=== PATIENT | male | born 1960 | race Caucasian/White ===

== ENCOUNTER 2020-07-18 14:20 | Inpatient (IN) | payer OTHER ==
[~2020-07-18] VITALS: Ht 167.6 cm; Wt 79.8 kg
[2020-07-18] VITALS (7 sets, daily range): BP systolic 95–116; BP diastolic 45–71
[2020-07-18] MEDS ORDERED: IV NS 0.9% 1,000 ML BAG IV ONE (15:00)
[2020-07-18 15:19] LABS: BASOPHILS # (AUTO) 0.1 /CMM (0.0-0.2); BASOPHILS % (AUTO) 0.7 % (0.0-2.0); EOSINOPHILS % (AUTO) 1.7 % (0.0-6.0); LYMPHOCYTES # (AUTO) 1.3 /CMM (0.8-4.8); MEAN CORPUSCULAR HGB CONC 29 g/dl (31.0-36.0); MEAN CORPUSCULAR VOLUME 93 fL (80-96); MONOCYTES # (AUTO) 1.6 /CMM (0.1-1.30); MONOCYTES % (AUTO) 11.4 % (2.0-12.0); NEUTROPHILS # (AUTO) 10.7 /CMM (1.8-8.9); NEUTROPHILS % (AUTO) 77.2 % (43.0-81.0); PLATELET COUNT (AUTO) 318 /CMM (150-450); RED BLOOD CELL COUNT(AUTO) 2.16 MIL/uL (4.5-6.0); WHITE BLOOD COUNT (AUTO) 13.9 K/uL (4.3-11.0)
--- NOTE | 2020-07-18 15:22 | NUR ---
BIBA [facility] From [facility] "was going to [facility] dialysis his BP was low". PT EYES CLOSED, NON VERBAL. RR EVEN & UNLABORED. PLACED ON VENT 02 SAT 100%. PLACED ON SURVEYOR INSTRUMENT ASSISTANT, SR. PT SEEN & EVAL'D BY DR. HURST. WILL CONT TO MONITOR.
[2020-07-18 15:23] LABS: HEMATOCRIT 20 % (39-51); HEMOGLOBIN 5.8 g/dL (13.5-17.5)
[2020-07-18] MEDS ORDERED: IV NS 0.9% 500 ML BAG IV ONE (15:30)
[2020-07-18] MEDS ORDERED: AMLO5TAB4 GT (15:40)
[2020-07-18] MEDS ORDERED: SEVE0.8P3 GT (15:40)
[2020-07-18] MEDS ORDERED: TRAM50TA2 GT (15:40)
[2020-07-18] MEDS ORDERED: HEPA100D33 SUBCUT (15:40)
[2020-07-18] MEDS ORDERED: CHOL4PAC GT (15:40)
[2020-07-18] MEDS ORDERED: BISA10SU11 RC (15:40)
[2020-07-18] MEDS ORDERED: GLYC2TAB21 GT (15:40)
[2020-07-18] MEDS ORDERED: LINA5TAB GT (15:40)
[2020-07-18] MEDS ORDERED: MULT-439 GT (15:40)
[2020-07-18] MEDS ORDERED: FAMO20TA8 GT (15:40)
[2020-07-18] MEDS ORDERED: NA P133E RC (15:40)
[2020-07-18] MEDS ORDERED: ATOR80TA GT (15:40)
[2020-07-18] MEDS ORDERED: HYDR-3972 GT (15:40)
[2020-07-18] MEDS ORDERED: ASPI-1169 GT (15:40)
[2020-07-18] MEDS ORDERED: ACET325T53 GT (15:40)
[2020-07-18] MEDS ORDERED: ESCI10TA GT (15:40)
[2020-07-18] MEDS ORDERED: VIT1TABL46 GT (15:40)
[2020-07-18] MEDS ORDERED: METO-295 GT (15:40)
[2020-07-18] MEDS ORDERED: LATA2.5D15 OP (15:40)
[2020-07-18] MEDS ORDERED: METO25TA6 GT (15:40)
[2020-07-18] MEDS ORDERED: INSU100I45 SUBCUT (15:40)
[2020-07-18] MEDS ORDERED: ALBU6.7H9 IH (15:40)
[2020-07-18] MEDS ORDERED: FERR325T23 GT (15:40)
[2020-07-18] MEDS ORDERED: NUT.237L67 GT (15:40)
[2020-07-18] MEDS ORDERED: DEXT1DRO3 OP (15:40)
[2020-07-18] MEDS ORDERED: AMIN887L GT (15:40)
[2020-07-18] MEDS ORDERED: DOCU-141 GT (15:40)
[2020-07-18] MEDS ORDERED: ASCO500C17 GT (15:40)
[2020-07-18 15:45] LABS: BILIRUBIN,DIRECT 0.1 mg/dL (0.0-0.2); BILIRUBIN,TOTAL 0.3 mg/dL (0.2-1.0); CALCIUM, SERUM 8.3 mg/dL (8.5-10.1); CREATININE 3.3 mg/dL (0.6-1.3); POTASSIUM 4.6 mmol/L (3.5-5.1); TOTAL PROTEIN, SERUM 6.4 g/dL (6.4-8.2)
[2020-07-18 15:47] LABS: ALBUMIN 1.3 g/dL (3.4-5.0)
--- NOTE | 2020-07-18 15:56 | NUR ---
PAGED [facility].
[2020-07-18 16:00] LABS: BAND % (MANUAL) 1 % (0.0-5.0); EOSINOPHILS % (MANUAL) 1 % (0-4); LYMPHOCYTES % (MANUAL) 13 % (16-48); MONOCYTES % (MANUAL) 8 % (0-11.0); NEUTROPHILS % (MANUAL) 77 (42-76)
[2020-07-18] MEDS ORDERED: PIPERACILLIN /TAZOBACTAM 3.375 G in IV D5W 50 ML IV ONE (16:00)
[2020-07-18] MEDS ORDERED: VANCOMYCIN 1 GM in IV D5W 250 ML IV ONE (16:30)
--- NOTE | 2020-07-18 17:07 | NUR ---
REPORT GIVEN TO GAYATHRI FLOWERS FOR NIKA.
--- NOTE | 2020-07-18 17:30 | NUR ---
ADMITTING NOTE Received patient from ER via bed, A/OX0. on vent, tolerating setting well, SPO2 100%, VS WNL, IV line dislodged during transportation to hospital bed, made attempt x3 to start a new line, unsuccessful, net making supervisor notifyed, made call to notify , blood is ready for fruit picker, unable transfuse at this moment, G-tube in place, clamped, Safety measures in place, bed locked, in lowest position, bed alarm is on, call light in reach, will con to monitor
[2020-07-18] MEDS ORDERED: HYDROCODONE/APAP 5/325MG TABLET PO PRN (18:30)
[2020-07-18] MEDS ORDERED: MAG HYDROX/AL HYDROX/SIMETH 30 ML UDC PO PRN (18:30)
[2020-07-18] MEDS ORDERED: ZOLPIDEM TARTRATE 5 MG TABLET PO PRN (18:30)
[2020-07-18] MEDS ORDERED: NEPRO VAN 237 ML CAN GT SCH (18:30)
[2020-07-18] MEDS ORDERED: MAGNESIUM HYDROXIDE 30 ML UDC PO PRN (18:30)
[2020-07-18] MEDS ORDERED: ONDANSETRON HCL/PF 4 MG/2 ML VIAL IVP PRN (18:30)
[2020-07-18] MEDS ORDERED: TRAMADOL HCL 50 MG TABLET GT PRN (18:30)
[2020-07-18] MEDS ORDERED: BISACODYL SUPP (10 MG) 10 MG/SUPP.RECT SUPP.RECT RC PRN (18:30)
[2020-07-18] MEDS ORDERED: NA PHOS,M-B/NA PHOS,DI-BA 1 EA ENEMA RC PRN (18:30)
[2020-07-18] MEDS ORDERED: ACETAMINOPHEN 325 MG TABLET PO PRN ×2 (18:30)
[2020-07-18] MEDS ORDERED: Z GUARD REMEDY 2 OZ OINT TP PRN (18:30)
--- NOTE | 2020-07-18 18:36 | NUR ---
IV LINES STARTED R HANG G22, AND L HAND G 20, BOTH INTACT AND PATENT
--- NOTE | 2020-07-18 18:50 | NUR ---
FEVER 101.8 NOTED, TYLENOL GIVEN
[2020-07-18] MEDS ORDERED: POLYVINYL ALCOHOL 15 ML BOTTLE OP PRN (19:00)
[2020-07-18] MEDS: METOPROLOL TARTRATE 25 MG TABLET GT SCH (21:00)
[2020-07-18] MEDS ORDERED: ALBUTEROL SULFATE INH 18 GM HFA.AER.AD IH SCH (21:00)
[2020-07-18] MEDS ORDERED: Medication Not On Formulary EA (Atorvastatin Calcium (Lipitor) 80 MG) GT SCH (22:00)
[2020-07-18] MEDS: CHOLESTYRAMINE/ASPARTAME 4 G/PKT PACKET GT SCH (22:16)
[2020-07-18] MEDS: CEFEPIME 1 GM in IV D5W 100 ML IV SCH (22:20)
[2020-07-18] MEDS: LATANOPROST EYE DROP 0.005% 2.5 ML BOTTLE OP SCH (22:23)
[2020-07-18] MEDS: METOCLOPRAMIDE HCL 10 MG TABLET GT SCH (23:38)
[2020-07-19] VITALS (11 sets, daily range): BP systolic 97–128; BP diastolic 47–68
--- NOTE | 2020-07-19 05:32 | NUR ---
RN notes In bed resting comfortably with no respiratory distress. Breathing even and unlabored. Vent setting well tolerated. No Physical manifestation of pain or discomfort. Alert and able to answer a yes or no question by nodding or shaking head. Started feeding Nepro at 40mls/hr x 18 hours. On at 21:00 and off at 15:00, tolerating well with no residual. Infused two PRBC, no adverse effect noted. Patient had an elevated temperature 100.5. Called Dr. Ramirez and gave a signal to infuse the blood. Temperature eventually went down to 98.5 to 99. Skin assessment done. Multiple pressure sore noted. Kept clean and dry. Will endorse to next shift for continuity of care.
[2020-07-19] MEDS: METOCLOPRAMIDE HCL 10 MG TABLET GT SCH ×4 (06:20→23:34)
[2020-07-19 06:44] LABS: BASOPHILS # (AUTO) 0.1 /CMM (0.0-0.2); BASOPHILS % (AUTO) 0.6 % (0.0-2.0); EOSINOPHILS % (AUTO) 2.1 % (0.0-6.0); HEMATOCRIT 30 % (39-51); HEMOGLOBIN 8.9 g/dL (13.5-17.5); LYMPHOCYTES # (AUTO) 1.6 /CMM (0.8-4.8); LYMPHOCYTES % (AUTO) 10.7 % (20.0-44.0); MEAN CORPUSCULAR HGB CONC 30 g/dl (31.0-36.0); MEAN CORPUSCULAR VOLUME 93 fL (80-96); MONOCYTES # (AUTO) 1.4 /CMM (0.1-1.30); MONOCYTES % (AUTO) 9.3 % (2.0-12.0); NEUTROPHILS # (AUTO) 11.3 /CMM (1.8-8.9); NEUTROPHILS % (AUTO) 77.3 % (43.0-81.0); PLATELET COUNT (AUTO) 270 /CMM (150-450); WHITE BLOOD COUNT (AUTO) 14.6 K/uL (4.3-11.0)
[2020-07-19 07:28] LABS: CALCIUM, SERUM 8.9 mg/dL (8.5-10.1); CREATININE 3.6 mg/dL (0.6-1.3); MAGNESIUM 2.5 mg/dL (1.8-2.4); PHOSPHORUS 2.5 mg/dL (2.5-4.9); POTASSIUM 4.2 mmol/L (3.5-5.1)
--- NOTE | 2020-07-19 07:30 | NUR ---
JAILENE RN OPENING NOTE RECEIVED REPORT FROM PM NURSE.PATIENT IN BED.AWAKE.NO SOB NO DISTRESS NOTED.ON VENTILATOR WITH TRACH.NO SOB NO DISTRESS NOTED.GTF IS ONGOING WITHOUT ANY RESIDUAL.IV LINES ARE INTACT AND PATENT.ON TELE MONITOR SR WITH HR 83.ALL SFETY AND ASPIRATION MEASURES IN PLACE.BED IS LOW AND IN LOCKED POSITION.CALL LIGHT IN REACH.SRX3.BED ALARM IS ON.WILL CONTINUE TO MONITORS.
--- NOTE | 2020-07-19 08:30 | NUR ---
JAILENE RN NOTE SEEN BY ,UPDATED ABOUT PATIENT CONDITION WITH LB RESULT OF HIGH BUN AND CREATININE AND HIGH BLOOD GLUCOSE LEVEL.CONTINUE HOME MEDICATION ORDERED AND ACCU CHECK .WHILE LOOKING E MAR MED IS NOT INCLUDED.PHARMACY MADE AWARE.RECOMMENDED TO CONTINUE WITH SLIDING SCALE AND DO COVERAGE. MADE AWARE.OK TO CONTINUE WITH MODERATE SLIDING SCALE.WILL CONTINUE TO MONITOR.
[2020-07-19] MEDS ORDERED: GLYCOPYRROLATE 2 MG GT SCH (09:00)
[2020-07-19] MEDS ORDERED: AMINO ACIDS GT SCH (09:00)
[2020-07-19] MEDS ORDERED: [UNRECOGNIZED DRUG - OTHER] GT SCH (09:00)
[2020-07-19] MEDS: METOPROLOL TARTRATE 25 MG TABLET GT SCH (09:00)
[2020-07-19] MEDS ORDERED: INSULIN ASPART/LISPRO 100 UNIT/ML CARTRIDGE SQ PRN (09:00)
[2020-07-19] MEDS ORDERED: ASPIRIN 81 MG TAB.CHEW GT SCH (09:00)
[2020-07-19] MEDS ORDERED: ESCITALOPRAM OXALATE (10 MG) 10 MG TABLET GT SCH (09:00)
[2020-07-19] MEDS ORDERED: INSULIN REGULAR, HUMAN 100 UNIT/ML 3 ML VIAL SQ PRN (09:00)
[2020-07-19] MEDS ORDERED: PROTEIN HYDROLYS GT SCH (09:00)
[2020-07-19] MEDS ORDERED: INSULIN NPH HUMAN ISOPHANE SUBCUT SCH (09:00)
[2020-07-19] MEDS ORDERED: AMLODIPINE BESYLATE 5 MG TABLET GT SCH (09:00)
[2020-07-19] MEDS ORDERED: INSULIN NPH, HUMAN ISOPHANE 100 UNIT/ML VIAL SQ SCH (09:00)
[2020-07-19] MEDS ORDERED: FERROUS SULFATE (325 MG) 325 MG/TAB TABLET GT SCH (09:00)
[2020-07-19] MEDS ORDERED: DEXTROSE 50%-WATER 50 ML DISP.SYRIN IV PRN (09:00)
[2020-07-19] MEDS ORDERED: HYDROCODONE/APAP 5/325MG TABLET GT SCH (09:00)
[2020-07-19] MEDS: LINAGLIPTIN 5 MG TABLET GT SCH (09:03)
[2020-07-19] MEDS: VIT B CMPLX 3/FA/VIT C/BIOTIN 1 TAB TABLET GT SCH (09:03)
[2020-07-19] MEDS: DOCUSATE SODIUM 100 MG CAPSULE PO SCH (09:03)
[2020-07-19] MEDS: MULTIVIT W/MINERALS 1 TAB TABLET GT SCH (09:04)
[2020-07-19] MEDS: FAMOTIDINE (20 MG) 20 MG TABLET GT SCH (09:04)
[2020-07-19] MEDS: ASCORBIC ACID 500 MG TABLET GT SCH (09:04)
[2020-07-19] MEDS: SEVELAMER CARBONATE 800 MG POWD.PACK GT SCH ×3 (09:04→17:38)
[2020-07-19] MEDS: CHOLESTYRAMINE/ASPARTAME 4 G/PKT PACKET GT SCH (09:06)
--- NOTE | 2020-07-19 09:30 | NUR ---
RN NOTE QUESTRAN MEDICATION NOT ADMINISTERED BECAUSE MEDICATION DISCONTINUED.DISCARDED THE MEDICATION.
[2020-07-19 09:53] LABS: THYROID STIMULATING HORMONE 2.616 uIU/mL (0.358-3.74)
[2020-07-19] MEDS: INSULIN NPH, HUMAN ISOPHANE 100 UNIT/ML VIAL SQ SCH ×3 (10:24→17:39)
--- NOTE | 2020-07-19 11:35 | NUR ---
RN NOTE MADE AWARE THAT D DIMER LEVEL AND CRP IS HIGH WITH VALUES.MADE AWARE THAT PATIENT NOT ON ANY ANTICOAGULANT.LOW H/H.S/P BLOOD TRANSFUSION.GOT NEW ORDER FOR DEXAMETHASONE 6MG IV DAILY.CARRIED OUT ORDER.
[2020-07-19] MEDS: BLOOD SUGAR DIAGNOSTIC 1 EACH STRIP IN SCH ×2 (12:45→17:35)
[2020-07-19] MEDS: DEXAMETHASONE SOD PHOSPHATE 10 MG/ML VIAL IV SCH (12:45)
--- NOTE | 2020-07-19 13:01 | NUR ---
RN NOTE WILL CONTINUE WITH NPH AND ACCU CHECK.MODERATE SLIDING SCALE IF NEEDED PER .DISCONTINUED ACCU CHECK.WILL CONTINUE TO MONITOR. Addendum: 07/19/20 at 1332 by MARIANA GATICA RN DISCONTINUED REGULAR INSULIN WITH ACCU CHECK.
--- NOTE | 2020-07-19 16:19 | NUR ---
RN NOTE RECEIVED CALL FROM LAB FOR POSITIVE ,MRSA.BACTROBAN ORDERED.ON CONTACT ISOLATION.
--- NOTE | 2020-07-19 18:14 | NUR ---
RN NOTE FAMILY AT BEDSIDE .UPDATED ABOUT PATIENT CONDITION.ABLE TO ANSWER QUESTIONS.FAMILY APPRECIATED CARE GIVEN.WILL CONTINUE TO MONITOR.
--- NOTE | 2020-07-19 19:25 | NUR ---
RN CLOSING NOTE ENDORSED TO PM NURSE FOR NIKA.FAMILY AT BEDSIDE.PATIENT IN STABLE CONDITION.ADDRESSED ALL NEEDS,.
--- NOTE | 2020-07-19 19:30 | NUR ---
RN OPENING NOTES: RECEIVED [facility] VENT PT(NON VERBAL); IN BED SLEEPING COMFORTABLY. PATIENT IN NO S/SX OF ACUTE DISTRESS AT THIS TIME. NO SOB NOTED. PATIENT'S BREATHING IS EVEN AND UNLABORED. PATIENT ON MECHANICAL VENT; SETTINGS PRESCRIBED; PT TOLERATED WELL. AMBU BAG AT BED SIDE ALARMS SET PER PROTOCOL AND AUDIBLE. VENT PLUGGED IN TO RED OUTLET. NO DISTRESS NOTED. PATIENT ON TELE MONITORING READING SINUS RHYTHM HR IS @80S AT THE TIME OF RECEIVED. G TUBE FLUSHING AND PATENT; SITE CLEAN DRY AND INTACT; NO RESIDUAL NOTED; CONNECTED TO TUBE FEEDING OF NEPRO @40ML/HR; TOLERATES WELL. NOTED IV SITE ON L HAND #20; PATENT, INTACT AND FLUSHING WELL;NO S/S OF INFECTION OR INFILTRATION. PT ALSO HAS L CHES PERMA CATH; SECURE AND INTACT. SAFETY MEASURES HAVE BEEN PROVIDED AND IMPLEMENTED. PATIENT BED ALARM IS ON. HEAD OF BED ELEVATED. BED IS LOCKED, IN LOWEST POSITION AND SIDE RAILS UP. CALL LIGHT WITHIN REACH OF THE PATIENT. APPLICABLE ISOLATION PRECAUTIONS IN PLACE. WILL CONTINUE TO MONITOR AND REASSESS FOR ANY CHANGES AND WILL CARRY OUT ANY ONGOING AND ACTIVE MD ORDER.
[2020-07-19] MEDS: MUPIROCIN OINT 2% 22 GM TUBE NS SCH (21:21)
[2020-07-19] MEDS: CEFEPIME 1 GM in IV D5W 100 ML IV SCH (21:21)
[2020-07-19] MEDS: LATANOPROST EYE DROP 0.005% 2.5 ML BOTTLE OP SCH (21:51)
--- NOTE | 2020-07-19 23:00 | NUR ---
RN NOTES NO CHANGE IN PATIENT CONDITION AT THIS TIME PATIENT VITALS STABLE, NO SIGNS OF ACUTE RESPIRATORY DISTRESS. DIE INSPECTOR MADE AWARE. WILL CONTINUE TO MONITOR AND REASSESS FOR ANY CHANGES THROUGHOUT THE SHIFT.
[2020-07-20] VITALS: BP 130/61
--- NOTE | 2020-07-20 00:05 | NUR ---
RN NOTES ACCU CHECK DONE; 370MG/DL. LOGISTICS VICE PRESIDENT MADE AWARE. WILL INFORM HAYES ALVAREZ TO VERIFY FOR ANY ORDER. REGULAR INSULIN C SLIDING SCALE HAS BEEN DC'd. COMMUNICATED WITH HAYES ALVAREZ AND ADVISED THAT DR ADEEL ROSALES REGULAR INSULIN C SLIDING SCALE AND ONLY EXISTING ORDER IS FOR NPH TID. ADVISED THATPT'S BLOOD SUGAR @0000 IS 370MG/DL. AWAITING RESPONSE. Addendum: 07/20/20 at 0017 by RAJWINDER QUINN RN HAYES ALVAREZ ORDERED TO PATTY INTAKE WORKER AND ORDERED REGULAR INSULIN ON MODERATE SSL.LOGISTICS VICE PRESIDENT MADE AWARE.
[2020-07-20] MEDS: BLOOD SUGAR DIAGNOSTIC 1 EACH STRIP IN SCH ×5 (00:15→23:13)
[2020-07-20] MEDS: INSULIN REGULAR, HUMAN 100 UNIT/ML 3 ML VIAL SQ PRN ×6 (00:28→23:16)
[2020-07-20] MEDS ORDERED: DEXTROSE 50%-WATER 50 ML DISP.SYRIN IV PRN (00:30)
[2020-07-20 04:00] VITALS: BP 139/69
--- NOTE | 2020-07-20 04:24 | NUR ---
RN NOTES PATIENT REMAINS IN NO ACUTE RESPIRATORY DISTRESS AT THIS TIME, NO CHANGES TO CONDITION/STATUS. AM PATIENT CARE DONE. CLINIC MD ASSOCIATE WELL AWARE. WILL CONTINUE TO MONITOR AND REASSESS FOR ANY CHANGES THROUGHOUT THE SHIFT
[2020-07-20] MEDS: METOCLOPRAMIDE HCL 10 MG TABLET GT SCH ×4 (05:11→23:05)
--- NOTE | 2020-07-20 05:45 | NUR ---
RN NOTES ACCU CHECK DONE 407MG/DL;WATER TREATMENT PLANT REPAIRER MADE AWARE. PER SLIDING SCALE 15U AND CALL MD. COMMUNICATED WITH HAYES ALVAREZ AND ADVISE ABOUT RESULT. HAYES ALVAREZ ADVISED TO RECHECK AFTER 30MINS AND DO SLIDING SCAL TO DETERMINE A SECOND DOSE; THEN RESUME ACCU CHECK SCHEDULE. WATER TREATMENT PLANT REPAIRER MADE AWARE. WILL CARRY OUT REQUESTED
[2020-07-20] MEDS: NEPRO 1,000 ML BOTTLE GT PRN (05:52)
[2020-07-20 06:38] LABS: BASOPHILS % (AUTO) 0.2 % (0.0-2.0); HEMATOCRIT 30 % (39-51); HEMOGLOBIN 9.1 g/dL (13.5-17.5); LYMPHOCYTES # (AUTO) 0.8 /CMM (0.8-4.8); LYMPHOCYTES % (AUTO) 6.6 % (20.0-44.0); MEAN CORPUSCULAR HGB CONC 30 g/dl (31.0-36.0); MEAN CORPUSCULAR VOLUME 90 fL (80-96); MONOCYTES # (AUTO) 0.3 /CMM (0.1-1.30); NEUTROPHILS # (AUTO) 11.5 /CMM (1.8-8.9); NEUTROPHILS % (AUTO) 91.2 % (43.0-81.0); PLATELET COUNT (AUTO) 310 /CMM (150-450); RED BLOOD CELL COUNT(AUTO) 3.33 MIL/uL (4.5-6.0); WHITE BLOOD COUNT (AUTO) 12.6 K/uL (4.3-11.0)
--- NOTE | 2020-07-20 06:48 | NUR ---
RN NOTES ACCU CHECK DONE 376MG/DL;CAKE WASHER MADE AWARE. WILL ADMINISTER INSULIN PER SLIDING SCALE; 15UNITS. CAKE WASHER MADE AWARE/.
--- NOTE | 2020-07-20 06:57 | NUR ---
RN CLOSING NOTE: PATIENT REMAINS IN ROOM IN NO SIGNS OF RESPIRATORY DISTRESS; STILL ON VENT SETTING PER ORDERED. SAFETY MEASURES IMPLEMENTED, BED IN LOWEST POSITION, LOCKED, SIDE RAILS UP, CALL LIGHT WITHIN REACH. ALL NEEDS AND ORDERS ADDRESSED DURING THE SHIFT. IV ACCESS MAINTAINED INTACT, SECURED AND FLUSHING WELL. ALL DUE MEDS GIVEN ORDERED & SCHEDULED ; PATIENT TOLERATED WELL. PATIENT KEPT CLEAN AND COMFORTABLE WITHIN THE SHIFT. PATIENT ENDORSED TO INCOMING SHIFT RN WITH STABLE VITAL SIGN AND FOR CONTINUITY OF CARE.
[2020-07-20 08:00] VITALS: BP 129/72
[2020-07-20 08:01] LABS: CALCIUM, SERUM 8.6 mg/dL (8.5-10.1); CREATININE 2.9 mg/dL (0.6-1.3); POTASSIUM 4.1 mmol/L (3.5-5.1)
[2020-07-20] MEDS: ASCORBIC ACID 500 MG TABLET GT SCH (08:44)
[2020-07-20] MEDS: FAMOTIDINE (20 MG) 20 MG TABLET GT SCH (08:44)
[2020-07-20] MEDS: VIT B CMPLX 3/FA/VIT C/BIOTIN 1 TAB TABLET GT SCH (08:44)
[2020-07-20] MEDS: DOCUSATE SODIUM 100 MG CAPSULE PO SCH (08:44)
[2020-07-20] MEDS: MULTIVIT W/MINERALS 1 TAB TABLET GT SCH (08:44)
[2020-07-20] MEDS: SEVELAMER CARBONATE 800 MG POWD.PACK GT SCH ×3 (08:44→17:59)
[2020-07-20] MEDS: LINAGLIPTIN 5 MG TABLET GT SCH (08:44)
[2020-07-20] MEDS: DEXAMETHASONE SOD PHOSPHATE 10 MG/ML VIAL IV SCH (08:45)
[2020-07-20] MEDS: MUPIROCIN OINT 2% 22 GM TUBE NS SCH ×2 (08:45→20:12)
[2020-07-20 12:00] VITALS: BP 158/82
[2020-07-20] MEDS: PROSOURCE / PROSTAT (PYXIS) 30 ML UDC GT SCH ×2 (12:51→18:06)
[2020-07-20] MEDS: INSULIN NPH, HUMAN ISOPHANE 100 UNIT/ML VIAL SQ SCH ×2 (12:52→18:04)
[2020-07-20 16:00] VITALS: BP 143/80
--- NOTE | 2020-07-20 19:30 | NUR ---
RN OPENING NOTE RECEIVED PATIENT IN BED RESTING MOUTH WORDS ON MECHANICAL VENT SETTING TRACH RAVEN #6 AC 24 TV 500 FIO2:40% PEEP 5,IV SITE IS ON LEFT HAND AND LEFT UPPER CHEST PERM-CATH FOR HD,ON G-TUBE FEEDING,CHECKED PLACEMENT IN PLACE NO RESIDUAL NOTED,INCONTINENT TO BOWEL/BLADDER,HEAD OF THE BED ELEVATED,BED IN LOW POSITION AND LOCKED,SAFETY MEASURE IMPLEMENT CONTINUE TO MONITOR.
[2020-07-20 20:00] VITALS: BP 147/68
[2020-07-20] MEDS: CEFEPIME 1 GM in IV D5W 100 ML IV SCH (20:07)
[2020-07-20] MEDS: LATANOPROST EYE DROP 0.005% 2.5 ML BOTTLE OP SCH (21:10)
[2020-07-21] VITALS: BP 152/73
[2020-07-21 04:00] VITALS: BP 139/64
[2020-07-21] MEDS: METOCLOPRAMIDE HCL 10 MG TABLET GT SCH ×3 (05:15→17:26)
[2020-07-21] MEDS: BLOOD SUGAR DIAGNOSTIC 1 EACH STRIP IN SCH ×3 (05:53→18:06)
[2020-07-21] MEDS: INSULIN REGULAR, HUMAN 100 UNIT/ML 3 ML VIAL SQ PRN ×2 (05:56→11:58)
[2020-07-21 06:29] LABS: BASOPHILS % (AUTO) 0.1 % (0.0-2.0); HEMATOCRIT 29 % (39-51); HEMOGLOBIN 8.9 g/dL (13.5-17.5); LYMPHOCYTES # (AUTO) 0.8 /CMM (0.8-4.8); LYMPHOCYTES % (AUTO) 4.9 % (20.0-44.0); MEAN CORPUSCULAR HGB CONC 30 g/dl (31.0-36.0); MEAN CORPUSCULAR VOLUME 91 fL (80-96); MONOCYTES # (AUTO) 0.8 /CMM (0.1-1.30); MONOCYTES % (AUTO) 4.9 % (2.0-12.0); NEUTROPHILS # (AUTO) 14.9 /CMM (1.8-8.9); NEUTROPHILS % (AUTO) 90.1 % (43.0-81.0); PLATELET COUNT (AUTO) 354 /CMM (150-450); RED BLOOD CELL COUNT(AUTO) 3.22 MIL/uL (4.5-6.0); WHITE BLOOD COUNT (AUTO) 16.6 K/uL (4.3-11.0)
--- NOTE | 2020-07-21 06:36 | NUR ---
RN CLOSING NOTE PATIENT REMAINS ON MECHANICAL VENT ON G-TUBE FEEDING NEPRO 40CC/HR HEAD OF THE BED ELEVATED ALL THE TIME NOT ACUTE DISTRESS NOTED KEPT CLEAN AND DRY ALL THE TIME,KEPT COMFORTABLE ALL NEEDS MET,ENDORSE NEXT COMING SHIFT FOR CONTINUATION OF CARE.
[2020-07-21 07:12] LABS: CALCIUM, SERUM 8.5 mg/dL (8.5-10.1); CREATININE 2.7 mg/dL (0.6-1.3); POTASSIUM 3.8 mmol/L (3.5-5.1)
--- NOTE | 2020-07-21 07:46 | NUR ---
RT Pt received trached on mechanical ventilation with noted settings. Vent is plugged into red outlet with spare trach by bedside. CUSTODIAN SUPERVISOR cuff pressure noted. No SOB or respiratory distress noted. Addendum: 07/21/20 at 0846 by MARCO DIAZ RT Amended: Links added.
[2020-07-21 08:00] VITALS: BP 130/58
--- NOTE | 2020-07-21 08:01 | NUR ---
Tele FINANCIAL ADVISOR TRAINEE Opening Notes: Received patient in room in bed awake, patient is A&O x1 and able to mouth words. Patient is reading Sinus Rhythm with Bundle Branch Block per Telemetry screen reading. Patient is on Bedrest and has wounds on sacrum and both heels. Patient has a left chest perm catheter and left hand 20 gauge IV saline lock also seen by preceptor Bernabe TRINH. Bed is in lowest position, three side rails up for safety and call light within reach. Will follow and adhere to MD orders/ scheduled medication unless any contraindications to hold meds and continue to monitor patient.
[2020-07-21] MEDS: SEVELAMER CARBONATE 800 MG POWD.PACK GT SCH ×3 (08:52→16:42)
[2020-07-21] MEDS: PROSOURCE / PROSTAT (PYXIS) 30 ML UDC GT SCH ×3 (08:52→16:39)
[2020-07-21] MEDS: FAMOTIDINE (20 MG) 20 MG TABLET GT SCH (08:52)
[2020-07-21] MEDS: VIT B CMPLX 3/FA/VIT C/BIOTIN 1 TAB TABLET GT SCH (08:52)
[2020-07-21] MEDS: ASCORBIC ACID 500 MG TABLET GT SCH (08:53)
[2020-07-21] MEDS: MUPIROCIN OINT 2% 22 GM TUBE NS SCH (08:53)
[2020-07-21] MEDS: DEXAMETHASONE SOD PHOSPHATE 10 MG/ML VIAL IV SCH (08:53)
[2020-07-21] MEDS: MULTIVIT W/MINERALS 1 TAB TABLET GT SCH (08:53)
[2020-07-21] MEDS: LINAGLIPTIN 5 MG TABLET GT SCH (08:53)
[2020-07-21] MEDS: INSULIN NPH, HUMAN ISOPHANE 100 UNIT/ML VIAL SQ SCH ×3 (08:55→17:03)
[2020-07-21] MEDS ORDERED: DOCUSATE SODIUM LIQ 100 MG/10 ML UDC NG SCH (09:00)
[2020-07-21 12:00] VITALS: BP 121/66
[2020-07-21] MEDS: NEPRO 1,000 ML BOTTLE GT PRN (14:12)
[2020-07-21 16:00] VITALS: BP 133/97
--- NOTE | 2020-07-21 19:25 | NUR ---
RN CLOSING NOTES DISCHARGED PT TO [facility], REPORT GIVEN TO JOVANNI TRINH. VS WNL. NOT IN DISTRESS. VACCINATIONS ALL UP TO DATE. PICTURES FOR WOUNDS PLACED IN THE CHART. KEPT IV ACCESS AT L HAND #20 PER RECEIVING RN. WOUND CARE DONE. NO BELONGINGS. NO COMPLAINS OF PAIN.
== END 2020-07-21 18:59 | DRG 194 ==
LOC: ER 14:30 → TELE1 17:13 → TELE-TD 17:25 → TELE1 07-19 21:56
PROVIDERS: ADMIT Family Medicine; ATTEND Family Medicine
PROC: 5A1945Z Respiratory Ventilation, 24-96 Consecutive Hours (ICD-10-PCS; principal; 2020-07-18)
PROC: 30233N1 Transfusion of Nonautologous Red Blood Cells into Peripheral Vein, Percutaneous Approach (ICD-10-PCS; 2020-07-18)
PROC: 5A1D70Z Performance of Urinary Filtration, Intermittent, Less than 6 Hours Per Day (ICD-10-PCS; 2020-07-18)
DX: I13.2 Hypertensive heart and chronic kidney disease with heart failure and with stage 5 chronic kidney disease, or end stage renal disease (principal); I21.A1 Myocardial infarction type 2; G93.41 Metabolic encephalopathy; E43 Unspecified severe protein-calorie malnutrition; Z99.11 Dependence on respirator [ventilator] status; J15.9 Unspecified bacterial pneumonia; J96.10 Chronic respiratory failure, unspecified whether with hypoxia or hypercapnia; I95.9 Hypotension, unspecified; E11.22 Type 2 diabetes mellitus with diabetic chronic kidney disease; D63.1 Anemia in chronic kidney disease; E11.65 Type 2 diabetes mellitus with hyperglycemia; E87.1 Hypo-osmolality and hyponatremia; I25.10 Atherosclerotic heart disease of native coronary artery without angina pectoris; I50.9 Heart failure, unspecified; K21.9 Gastro-esophageal reflux disease without esophagitis; N18.6 End stage renal disease; R13.10 Dysphagia, unspecified; Z20.822 Contact with and (suspected) exposure to COVID-19; Z79.82 Long term (current) use of aspirin; Z86.16 Personal history of COVID-19; Z93.1 Gastrostomy status; Z93.0 Tracheostomy status; Z95.1 Presence of aortocoronary bypass graft; Z99.2 Dependence on renal dialysis; E86.1 Hypovolemia; R74.8 Abnormal levels of other serum enzymes; N40.0 Benign prostatic hyperplasia without lower urinary tract symptoms; E88.09 Other disorders of plasma-protein metabolism, not elsewhere classified
CPT/HCPCS: 31720; 36415; 71045-TC; 80048-TC; 80061-TC; 80076-TC; 82728-TC; 82962-TC; 83540-TC; 83605-TC; 83735-TC; 83880; 84100-TC; 84439-TC; 84443-TC; 84484-TC; 85025-TC; 85378-TC; 85730-TC; 86140-TC; 86850-TC; 87040-TC; 87081-TC; 90935-TC; 93307-TC; 94003-TC; 94760-TC; 94762-TC; 94799-TC; A6253; A6403; C9803; G0378; J0692; J1100; J1815; J2543; J3370; J7050; J7060; J8597; P9016; U0003

== ENCOUNTER 2020-07-28 15:34 | Inpatient (IN) | payer OTHER ==
[2020-07-28] VITALS: BP 114/57
[~2020-07-28] VITALS: Ht 167.6 cm; Wt 79.8 kg
[~2020-07-28 15:34] MED LIST: ACET325T53 GT; ALBU6.7H9 IH; AMIN887L GT; AMLO5TAB4 GT; ASCO500C17 GT; ASPI-1169 GT; ATOR80TA GT; BISA10SU11 RC; CHOL4PAC GT; DEXT1DRO3 OP; DOCU-141 GT; ESCI10TA GT; FAMO20TA8 GT; FERR325T23 GT; GLYC2TAB21 GT; HEPA100D33 SUBCUT; HYDR-3972 GT; INSU100I45 SQ; LATA2.5D15 EACHEYE; LINA5TAB GT; METO-295 GT; METO25TA6 GT; MULT-439 GT; NA P133E RC; NUT.237L67 GT; SEVE0.8P3 GT; TRAM50TA2 GT; VIT1TABL46 GT
--- NOTE | 2020-07-28 15:40 | NUR ---
pt mar morales frm snf. sent here for elevated WBC. called nursing facility. pt was last dialyzed tuesday. gowned and placed on monitor. stable vitals. vent dependent. awaiting md anderson.
--- NOTE | 2020-07-28 15:55 | NUR ---
PT. RECEIVED AND PLACED INTO MECHANICAL VENTILATOR VIA TRACH SIZE #6 XLT WITH FOLLOWING SETTINGS PER RT TRANSPORTER: AC 24, VT 500 ML, FIO2 40%, PEEP +5. BREATH SOUNDS COARSE RHONCHI BILATERAL, SUCTIONED SMALL TO MODERATE AMNT PALE YELLOW SEMI THICK SECRETIONS. AMBUBAG bEDSIDE. Addendum: 07/28/20 at 1614 by JOSLYN CALHOUN RT Amended: Links added.
--- NOTE | 2020-07-28 15:59 | NUR ---
dr garcia at bedside for eval.
--- NOTE | 2020-07-28 16:28 | NUR ---
aquatic life laborer at bedside for blood draw.
[2020-07-28] MEDS ORDERED: MEROPENEM 500 MG in IV NS 0.9% 50 ML IV ONE (16:30)
[2020-07-28] MEDS ORDERED: VANCOMYCIN 1 GM in IV D5W 250 ML IV ONE (16:30)
[2020-07-28] MEDS ORDERED: VANC500P5 IV (16:38)
[2020-07-28] MEDS ORDERED: LANS30CA56 GT (16:38)
[2020-07-28] MEDS ORDERED: ACET650S26 GT (16:38)
[2020-07-28] MEDS ORDERED: CEFT1VIA14 IV (16:38)
[2020-07-28] MEDS ORDERED: HEPA50007 SQ (16:38)
[2020-07-28] MEDS ORDERED: CHOL4PAC2 GT (16:38)
[2020-07-28] MEDS ORDERED: POLY15DR40 EACHEYE (16:38)
[2020-07-28] MEDS ORDERED: CRAN3875 GT (16:38)
[2020-07-28] MEDS ORDERED: INSU100V3 SQ (16:38)
[2020-07-28] MEDS ORDERED: DOCU50LI GT (16:38)
[2020-07-28] MEDS ORDERED: ALBU8.5H8 IH (16:38)
[2020-07-28] MEDS ORDERED: FLUC200T GT (16:38)
[2020-07-28] MEDS ORDERED: LEVO500T90 GT (16:38)
[2020-07-28] MEDS ORDERED: FERR300L GT (16:38)
[2020-07-28] MEDS ORDERED: GLUC1KIT IM (16:38)
[2020-07-28 16:39] LABS: ABG BASE EXCESS -2.8 mmol/L; ABG OXYGEN SATURATION 97.3 % (92.0-98.5); ABG PCO2 48.2 mmHg (35.0-45.0); ABG PH 7.305 (7.350-7.450); ABG PO2 99.5 mmHg (75.0-100.0); AaDO2 130.3 mmHg; COHb 1.3 % (0.5-1.5); MetHb 0.5 % (0.0-1.5); O2Hb 95.5 % (94.0-97.0); PEEP,BG 5 cm H2O; SITE, ABG Right Radial; VT, ABG 500 mL
[2020-07-28 16:40] LABS: BASOPHILS # (AUTO) 0.2 /CMM (0.0-0.2); BASOPHILS % (AUTO) 0.5 % (0.0-2.0); EOSINOPHILS % (AUTO) 0.4 % (0.0-6.0); HEMATOCRIT 25 % (39-51); HEMOGLOBIN 7.4 g/dL (13.5-17.5); LYMPHOCYTES # (AUTO) 1.1 /CMM (0.8-4.8); LYMPHOCYTES % (AUTO) 3.3 % (20.0-44.0); MEAN CORPUSCULAR HGB CONC 30 g/dl (31.0-36.0); MEAN CORPUSCULAR VOLUME 95 fL (80-96); MONOCYTES # (AUTO) 3.2 /CMM (0.1-1.30); MONOCYTES % (AUTO) 9.9 % (2.0-12.0); NEUTROPHILS % (AUTO) 85.9 % (43.0-81.0); PLATELET COUNT (AUTO) 236 /CMM (150-450); RED BLOOD CELL COUNT(AUTO) 2.63 MIL/uL (4.5-6.0)
[2020-07-28 16:46] LABS: WHITE BLOOD COUNT (AUTO) 32.6 K/uL (4.3-11.0)
[2020-07-28 16:58] LABS: CALCIUM, SERUM 8.6 mg/dL (8.5-10.1); CREATININE 3.9 mg/dL (0.6-1.3); POTASSIUM 4.6 mmol/L (3.5-5.1)
[2020-07-28 16:59] LABS: BAND % (MANUAL) 5 % (0.0-5.0); LYMPHOCYTES % (MANUAL) 4 % (16-48); MONOCYTES % (MANUAL) 10 % (0-11.0); NEUTROPHILS % (MANUAL) 79 (42-76)
[2020-07-28 17:00] LABS: BASOPHILS % (MANUAL) 1 % (0.0-2.0); EOSINOPHILS % (MANUAL) 1 % (0-4)
[2020-07-28 17:04] LABS: ALBUMIN 1.5 g/dL (3.4-5.0); BILIRUBIN,DIRECT 0.2 mg/dL (0.0-0.2); BILIRUBIN,TOTAL 0.4 mg/dL (0.2-1.0); TOTAL PROTEIN, SERUM 6.5 g/dL (6.4-8.2)
--- NOTE | 2020-07-28 18:43 | NUR ---
COVID SWAB DONE AND SENT TO LAB
[2020-07-28] MEDS ORDERED: TRAMADOL HCL 50 MG TABLET GT PRN (19:30)
[2020-07-28] MEDS ORDERED: ALBUTEROL SULFATE INH 18 GM HFA.AER.AD IH PRN (19:30)
[2020-07-28] MEDS ORDERED: NA PHOS,M-B/NA PHOS,DI-BA 1 EA ENEMA RC PRN (19:30)
[2020-07-28] MEDS ORDERED: Z GUARD REMEDY 2 OZ OINT TP PRN (19:30)
[2020-07-28] MEDS ORDERED: IV NS 0.9% 1,000 ML IV PRN (19:30)
[2020-07-28] MEDS ORDERED: BISACODYL SUPP (10 MG) 10 MG/SUPP.RECT SUPP.RECT RC PRN (19:30)
[2020-07-28] MEDS ORDERED: POLYVINYL ALCOHOL 15 ML BOTTLE EACHEYE PRN (19:30)
[2020-07-28] MEDS ORDERED: HYDROCODONE/APAP 5/325MG TABLET PO PRN (19:30)
[2020-07-28] MEDS ORDERED: MEROPENEM 500 MG in IV NS 0.9% 50 ML IV SCH (19:30)
[2020-07-28] MEDS ORDERED: ONDANSETRON HCL/PF 4 MG/2 ML VIAL IVP PRN (19:30)
[2020-07-28] MEDS ORDERED: DEXTROSE 50%-WATER 50 ML DISP.SYRIN IV PRN (19:30)
--- NOTE | 2020-07-28 19:40 | NUR ---
REPORT GIVEN TO PAULETTE RN, CONTINUE PLAN OF CARE
[2020-07-28 20:00] VITALS: BP 100/40
[2020-07-28] MEDS ORDERED: NEPRO 1,000 ML BOTTLE GT PRN (20:00)
--- NOTE | 2020-07-28 20:30 | NUR ---
RN ADMITTING NOTES RECD PT IN BED, FROM ED. PT IS OBTUNDED. TRACH TO VENT. SHILEY 6 AC 24 TV 500 FIO2 40% PEEP OF 5. PT O2 SAT 100%. ON TELE PRESENTING WITH NSR HR OF 79. PT HAS LEFT IV SITE. TEMP OF 100.3 ICE PACKS AND COLD COMPRESS NOTED. MULTIPLE WOUNDS, PICTURES TAKEN. WOUND CONSULT TO ORDER. GTUBE AUSCULTATED FOR PLACEMENT. RESIDUAL NOTED 30CC OF DARK BROWN LIQUID WITH WHITE CHUNKS. NOTED PT TO HAVE REGLAN ORDERED. GTUBE FLUSHED. SAFETY MEASURES IN PLACE. HOB ELEVATED. BED LOCKED IN LOWEST POSITION SIDE RAILS UP X3. WILL CONT TO MONITOR
[2020-07-28] MEDS: METOPROLOL TARTRATE 25 MG TABLET GT SCH (21:00)
[2020-07-28] MEDS: LATANOPROST EYE DROP 0.005% 2.5 ML BOTTLE EACHEYE SCH (21:37)
[2020-07-28] MEDS: ATORVASTATIN 40 MG TABLET GT SCH ×2 (21:38→23:32)
[2020-07-28] MEDS: HEPARIN SODIUM, PORCINE 5000 UNITS/1 ML VIAL SQ SCH (21:42)
--- NOTE | 2020-07-28 23:30 | NUR ---
RN NOTE PT TEMP 99.6
[2020-07-28] MEDS: METOCLOPRAMIDE HCL 10 MG TABLET GT SCH (23:32)
[2020-07-28] MEDS: BLOOD SUGAR DIAGNOSTIC 1 EACH STRIP IN SCH (23:46)
[2020-07-29] VITALS: BP 114/57
[2020-07-29] MEDS: ALBUTEROL SULFATE INH 18 GM HFA.AER.AD IH SCH ×4 (01:30→20:33)
--- NOTE | 2020-07-29 01:45 | NUR ---
RN NOTE ORDERS FOR COLLECTION OF URINE FOR UA, UNABLE TO PLACE STRAIGHT CATH DUE TO ANATOMICAL MAKE UP OF PENIS. MULTIPLE ATTEMPTS WITH CHARGE, UNABLE TO PLACE. NOTIFIED RADIOLOGIC TECH STELLA. FOR BLADDER SCAN JUST IN CASE. BLADDER HAS 51 ML OF URINE NO NEW ORDERS
--- NOTE | 2020-07-29 03:35 | NUR ---
RN NOTE PT TEMP NOTED TO BE 97.6
[2020-07-29 04:00] VITALS: BP 124/51
[2020-07-29] MEDS: MEROPENEM 500 MG in IV NS 0.9% 50 ML IV SCH ×2 (04:00→16:30)
[2020-07-29] MEDS ORDERED: MEROPENEM 500 MG VIAL IV ONE (05:17)
[2020-07-29] MEDS: METOCLOPRAMIDE HCL 10 MG TABLET GT SCH ×3 (05:23→18:05)
[2020-07-29] MEDS: BLOOD SUGAR DIAGNOSTIC 1 EACH STRIP IN SCH ×3 (05:23→18:06)
[2020-07-29] MEDS ORDERED: VANCOMYCIN 500 MG in IV D5W 100 ML IV PRN (06:00)
[2020-07-29 06:34] LABS: BASOPHILS # (AUTO) 0.1 /CMM (0.0-0.2); BASOPHILS % (AUTO) 0.3 % (0.0-2.0); EOSINOPHILS % (AUTO) 0.5 % (0.0-6.0); HEMATOCRIT 25 % (39-51); HEMOGLOBIN 7.5 g/dL (13.5-17.5); LYMPHOCYTES # (AUTO) 1.6 /CMM (0.8-4.8); LYMPHOCYTES % (AUTO) 5.7 % (20.0-44.0); MEAN CORPUSCULAR HGB CONC 30 g/dl (31.0-36.0); MEAN CORPUSCULAR VOLUME 94 fL (80-96); MONOCYTES # (AUTO) 2.5 /CMM (0.1-1.30); NEUTROPHILS # (AUTO) 24.1 /CMM (1.8-8.9); NEUTROPHILS % (AUTO) 84.5 % (43.0-81.0); PLATELET COUNT (AUTO) 192 /CMM (150-450); WHITE BLOOD COUNT (AUTO) 28.5 K/uL (4.3-11.0)
--- NOTE | 2020-07-29 07:00 | NUR ---
RN NOTES RECEIVED PT ON BED, VENT/TRACH DEPENDENT, TRACH CARE DONE, OPENS EYES , DOES NOT FOLLOW COMMAND, ON TELE SR HR IN 70'S , LEFT HAND IV SITE CLEAN, DRY AND INTACT, SR UP x3, CALL LIGHT WITHIN EASY REACH, BED LOCKED AND IN LOWEST POSITION, CONTINUE TO MONITOR.
[2020-07-29 07:04] LABS: CALCIUM, SERUM 8.6 mg/dL (8.5-10.1); CARBON DIOXIDE 22 mmol/L (21-32); CHLORIDE 101 mmol/L (98-107); CREATININE 4.1 mg/dL (0.6-1.3); GLUCOSE 129 mg/dL (74-106); MAGNESIUM 2.5 mg/dL (1.8-2.4); PHOSPHORUS 3.9 mg/dL (2.5-4.9); POTASSIUM 4.8 mmol/L (3.5-5.1); SODIUM SERUM 137 mmol/L (136-145)
[2020-07-29 07:07] LABS: UREA NITROGEN, BLOOD 136 mg/dL (7-18)
--- NOTE | 2020-07-29 07:08 | NUR ---
RN CLOSING NOTE NO SIGNIFICANT CHANGES IN PT CONDITION. STILL REMAINS ON ORDERED VENT SETTINGS. NO DISTRESS NOTED. SAFETY MEASURES IN PLACE. IVF RUNNING ORDERED. NO S/S OF INFILTRATION. AFEBRILE AT THIS TIME. HOB ELEVATED. SIDE RAILS UP X2, BED LOCKED IN LOWEST POSITION. CALL LIGHT WITHIN REACH. WILL ENDORSE TO AM NURSE FOR CONT OF CARE.
[2020-07-29 07:09] LABS: HDL CHOLESTEROL 18 mg/dL (40-60); LDL 16 mg/dL (0-99); TRIGLYCERIDES 53 mg/dL (30-150)
[2020-07-29 07:28] LABS: CHOLESTEROL < 50 mg/dL (<200)
[2020-07-29 08:00] VITALS: BP 119/65
[2020-07-29] MEDS: DOCUSATE SODIUM LIQ 100 MG/10 ML UDC GT SCH (09:18)
[2020-07-29] MEDS: SEVELAMER CARBONATE 800 MG POWD.PACK GT SCH ×3 (09:18→16:31)
[2020-07-29] MEDS: ASPIRIN 81 MG TAB.CHEW GT SCH (09:18)
[2020-07-29] MEDS: FERROUS SULFATE UDC 300 MG/5 ML UDC GT SCH ×3 (09:18→16:30)
[2020-07-29] MEDS: FLUCONAZOLE (100 MG) 100 MG TABLET GT SCH (09:19)
[2020-07-29] MEDS: METOPROLOL TARTRATE 25 MG TABLET GT SCH ×2 (09:19→20:29)
[2020-07-29] MEDS: LINAGLIPTIN 5 MG TABLET GT SCH (09:19)
[2020-07-29] MEDS: VIT B CMPLX 3/FA/VIT C/BIOTIN 1 TAB TABLET GT SCH (09:19)
[2020-07-29] MEDS: FAMOTIDINE (20 MG) 20 MG TABLET GT SCH (09:20)
[2020-07-29] MEDS: PANTOPRAZOLE 40 MG TABLET.DR PO SCH (09:20)
[2020-07-29] MEDS: ESCITALOPRAM OXALATE (10 MG) 10 MG TABLET GT SCH (09:20)
[2020-07-29] MEDS: HYDROCODONE/APAP 5/325MG TABLET GT SCH (09:20)
[2020-07-29] MEDS: AMLODIPINE BESYLATE 5 MG TABLET GT SCH (09:21)
[2020-07-29] MEDS: HEPARIN SODIUM, PORCINE 5000 UNITS/1 ML VIAL SQ SCH ×2 (09:22→20:32)
--- NOTE | 2020-07-29 10:36 | NUR ---
WOUND CARE CONSULT: PT PRESENTS WITH DEEP TISSUE INJURIES TO BILATERAL FEET, SACRAL AND LEFT BUTTOCK STAGE 4 ULCERS AND WOUND TO PENIS WITH PROFOUND SWELLING OF PENIS AND SCROTUM, ALL PRESENT ON ADMISSION. DR BO SIDHU CALLED TO SURGICAL CONSULT AND DR TEE NOTIFIED OF DPM CONSULT. CULTURE TAKEN OF SACRAL WOUND PER INFECTIOUS DISEASE N.P. RECOMMENDATIONS MADE FOR SKIN PROTECTION AND WOUND CARE. DISCUSSED WITH NURSING STAFF. PT IS ON [facility] BED. IN AGREEMENT WITH PLAN OF CARE. Addendum: 07/29/20 at 1039 by TAMARA JUSTICE WNDNU Amended: Links added.
[2020-07-29 12:00] VITALS: BP 95/47
[2020-07-29] MEDS: INSULIN REGULAR, HUMAN 100 UNIT/ML 3 ML VIAL SQ PRN ×2 (12:16→18:27)
[2020-07-29] MEDS: DAKINS QUARTER STRENGTH (0.125%) 480 ML BOTTLE TOP SCH (12:17)
--- NOTE | 2020-07-29 15:30 | NUR ---
RN NOTES REPORT GIVEN TO GLEN RN FOR CONTINUITY OF CARE .
--- NOTE | 2020-07-29 15:40 | NUR ---
Received report from nurse to have patient under advertising writer's care. Patient did not show any s.s of respiratory distress. HOB kept elevated. Patient will be monitored. Call light with in reach. G tube feeding running well.
[2020-07-29 16:00] VITALS: BP 100/52
--- NOTE | 2020-07-29 17:23 | NUR ---
RT END OF THE SHIFT NOTE, PT. 59 YEAR OLD MALE JET CARBAJAL # 6 REMAIN ON VENT RECEIVED 0700 AM WITH NOTED SETTINGS, ALARMS ARE SET AND FUNCTIONAL, VENT PLUGGED INTO RED OUTLET, NO DISTRESS T/O DAY SPUTUM COLLECTED FOR LAB AND RN SENT [place]O. AND NO CHANGES ON VENT SETTINGS, AND BILATERAL CHEST MOVEMENT NOTED, AMBU BAG REMAIN AT THE BEDSIDE. B/S BILATERALLY RALES, SUX'D FOR MODERATE AMT. SECRETIONS PT. REMAIN STABLE. HME CHANGED, DIESEL TRACTOR ENGINE MECHANIC DONE REPORT WILL PASS TO PM SHIFT. Addendum: 07/29/20 at 1727 by JANELLE MILLER RT Amended: Links added.
--- NOTE | 2020-07-29 19:23 | NUR ---
RN CLOSING NOTES Patient noted with eyes open to physical stimuli . IV site noted and flushed well. Nepro running at 40 cc /hour , edward well. HOB kept elevated. Mechanical vent settings edward well with 02 sat of 96%. Endorsed to next shift for fabiola.
--- NOTE | 2020-07-29 19:35 | NUR ---
RN OPENING NOTE RECEIVED PATIENT IN BED OBTUNDED NON VERBAL,OPEN EYES,ON MECHANICAL VENT SETTING SHILEY #6 AC 24 TV 478 FIO2:40 PEEP 5 O2: 98% ON FEEDING TUBE NEPRO 1.8 40CC/HR CHECKED PLACEMENT IN PLACE NO RESIDUAL NOTED,IV SITE IS ON LEFT WRIST INTACT PATENT,HEAD OF BED ELEVATED INCONTINENT TO BOWEL/BLADDER,SAFETY MEASURE IMPLEMENT BED IN LOW POSITION AND LOCKED,CONTINUE TO MONITOR.
[2020-07-29 20:00] VITALS: BP 126/54
[2020-07-29] MEDS: LATANOPROST EYE DROP 0.005% 2.5 ML BOTTLE EACHEYE SCH (21:04)
[2020-07-30] VITALS (8 sets, daily range): BP systolic 110–126; BP diastolic 51–63
[2020-07-30] MEDS: BLOOD SUGAR DIAGNOSTIC 1 EACH STRIP IN SCH ×4 (00:03→18:17)
[2020-07-30] MEDS: METOCLOPRAMIDE HCL 10 MG TABLET GT SCH ×4 (00:04→18:00)
[2020-07-30] MEDS: INSULIN REGULAR, HUMAN 100 UNIT/ML 3 ML VIAL SQ PRN ×4 (00:10→18:19)
[2020-07-30] MEDS: ALBUTEROL SULFATE INH 18 GM HFA.AER.AD IH SCH ×4 (00:45→19:30)
[2020-07-30] MEDS: MEROPENEM 500 MG in IV NS 0.9% 50 ML IV SCH ×2 (03:14→16:40)
[2020-07-30 06:35] LABS: BASOPHILS # (AUTO) 0.1 /CMM (0.0-0.2); BASOPHILS % (AUTO) 0.3 % (0.0-2.0); EOSINOPHILS % (AUTO) 0.2 % (0.0-6.0); HEMATOCRIT 23 % (39-51); LYMPHOCYTES # (AUTO) 1.3 /CMM (0.8-4.8); LYMPHOCYTES % (AUTO) 4.3 % (20.0-44.0); MEAN CORPUSCULAR HGB CONC 30 g/dl (31.0-36.0); MEAN CORPUSCULAR VOLUME 94 fL (80-96); MONOCYTES # (AUTO) 2.8 /CMM (0.1-1.30); MONOCYTES % (AUTO) 9.2 % (2.0-12.0); NEUTROPHILS # (AUTO) 26.3 /CMM (1.8-8.9); PLATELET COUNT (AUTO) 188 /CMM (150-450); RED BLOOD CELL COUNT(AUTO) 2.42 MIL/uL (4.5-6.0)
[2020-07-30 06:40] LABS: HEMOGLOBIN 6.8 g/dL (13.5-17.5); WHITE BLOOD COUNT (AUTO) 30.6 K/uL (4.3-11.0)
--- NOTE | 2020-07-30 06:48 | NUR ---
RN NOTE RECEIVED CRITICAL LAB WBC 30.6 AND HEMOGLOBIN 6.8 NOTIFIED RADIO MACHINIST GOLD CASTILLO,CONTINUE TO MONITOR.
--- NOTE | 2020-07-30 07:08 | NUR ---
RN NOTE MED SURG NURSE GOLD CASTILLO ANSWERED BLOOD TRANSFUSION BUT POSSIBLY WITH DIALYSIS CHECKING WITH NEPHROLOGY,NOTED AND CARRIED OUT.
[2020-07-30 07:12] LABS: CREATININE 3.2 mg/dL (0.6-1.3); MAGNESIUM 2.2 mg/dL (1.8-2.4); PHOSPHORUS 3.5 mg/dL (2.5-4.9)
--- NOTE | 2020-07-30 07:16 | NUR ---
RN CLOSING NOTE PATIENT REMAINS ON OBTUNDED ON MECHANICAL VENT NO SOB,ALL DUE MEDS GIVEN MD ORDERED KEPT CLEAN AND DRY ALL THE TIME,HEAD OF BED ELEVATED NO BM,ENDORSE NEXT COMING SHIFT FOR CONTINUATION OF CARE.
--- NOTE | 2020-07-30 08:05 | NUR ---
RT Pt received trached on mechanical ventilation with noted settings. Vent is plugged into red outlet, spare trach by bedside. No SOB or respiratory distress noted. Addendum: 07/30/20 at 1004 by MARCO DIAZ RT Amended: Links added.
[2020-07-30 08:40] LABS: LYMPHOCYTES % (MANUAL) 3 % (16-48); MONOCYTES % (MANUAL) 6 % (0-11.0); NEUTROPHILS % (MANUAL) 91 (42-76)
[2020-07-30] MEDS: DOCUSATE SODIUM LIQ 100 MG/10 ML UDC GT SCH (09:00)
[2020-07-30] MEDS: VIT B CMPLX 3/FA/VIT C/BIOTIN 1 TAB TABLET GT SCH (10:07)
[2020-07-30] MEDS: FERROUS SULFATE UDC 300 MG/5 ML UDC GT SCH ×3 (10:07→18:16)
[2020-07-30] MEDS: HYDROCODONE/APAP 5/325MG TABLET GT SCH (10:07)
[2020-07-30] MEDS: FLUCONAZOLE (100 MG) 100 MG TABLET GT SCH (10:07)
[2020-07-30] MEDS: FAMOTIDINE (20 MG) 20 MG TABLET GT SCH (10:08)
[2020-07-30] MEDS: PANTOPRAZOLE 40 MG TABLET.DR PO SCH (10:08)
[2020-07-30] MEDS: SEVELAMER CARBONATE 800 MG POWD.PACK GT SCH ×3 (10:08→18:16)
[2020-07-30] MEDS: ASPIRIN 81 MG TAB.CHEW GT SCH (10:08)
[2020-07-30] MEDS: HEPARIN SODIUM, PORCINE 5000 UNITS/1 ML VIAL SQ SCH ×2 (10:09→21:00)
[2020-07-30] MEDS: AMLODIPINE BESYLATE 5 MG TABLET GT SCH (10:09)
[2020-07-30] MEDS: METOPROLOL TARTRATE 25 MG TABLET GT SCH ×2 (10:10→21:25)
[2020-07-30] MEDS: ESCITALOPRAM OXALATE (10 MG) 10 MG TABLET GT SCH (10:10)
[2020-07-30] MEDS: LINAGLIPTIN 5 MG TABLET GT SCH (10:10)
[2020-07-30] MEDS: DAKINS QUARTER STRENGTH (0.125%) 480 ML BOTTLE TOP SCH (10:11)
--- NOTE | 2020-07-30 12:00 | NUR ---
DIALYSIS STARTED AT 1200, 1 UNIT PRBC TO BE GIVEN WITH DIALYSIS. MEDS WILL BE HELD TILL AFTER DIALYSIS.
[2020-07-30] MEDS ORDERED: HYDROCODONE/APAP 5/325MG TABLET GT PRN (12:54)
[2020-07-30] MEDS ORDERED: EPOETIN ALFA-EPBX 10,000 UNIT/ML VIAL IV SCH (18:30)
--- NOTE | 2020-07-30 19:30 | NUR ---
RN NOTE RECEIVED PATIENT IN BED, ON SEMI OLEARY'S, NON VERBAL, OPENS EYES, IN NO S/SX OF ACUTE DISTRESS AT THIS TIME, ON TRACH CONNECTED TO MECHANICAL VENTILATOR WITH SETTINGS PRESCRIBED, SATURATION AT 96%, SR ON THE MONITOR, HR IS 86. NOTED IV SITE AT L HAND 22G, PATENT AND FLUSHING WELL, NO S/S OF INFECTION OR INFILTRATION. GTUBE INTACT, PLACEMENT CHECKED BY AUSCULTATION AND ASPIRATION, NO RESIDUAL NOTED, WITH TUBE FEEDING OF NEPRO AT 45 ML/HR. SAFETY MEASURES IMPLEMENTED. PATIENT BED ALARM IS ON. HEAD OF BED ELEVATED. BED IS LOCKED, IN LOWEST POSITION AND SIDE RAILS UP. CALL LIGHT WITHIN REACH OF THE PATIENT. WILL CONTINUE TO MONITOR AND REASSESS FOR ANY CHANGES.
--- NOTE | 2020-07-30 19:30 | NUR ---
END OF SHIFT NOTE: 1 UNIT PRBCS GIVEN WITH DIALYSIS. 1L REMOVED DURING DIALYSIS. CONSENT SIGNED AND ON CHART FOR DEBRIDEMENT OF SACRAL AND LEFT BUTTOCK WOUNDS. PT HAD 2 BMS THIS SHIFT. PT CHECKED ON HOURLY AND PRN BY NURSING STAFF.
--- NOTE | 2020-07-30 21:00 | NUR ---
RN NOTE NOTED HGB 6.8, HCT 23, STATUS POST 1 UNIT PRBC WITH HD 07/30, NO SIGN OF BLEEDING NOTED. NO REPEAT H&H/CBC DONE. NOTIFIED DR MILLS REGARDING 2100 DOSE OF HEPARIN, ORDERS RECEIVED TO HOLD DOSE FOR TONIGHT. DENTAL PROFESSIONAL AWARE
[2020-07-30] MEDS: LATANOPROST EYE DROP 0.005% 2.5 ML BOTTLE EACHEYE SCH (21:24)
[2020-07-31] VITALS: BP 129/54
[2020-07-31] MEDS: BLOOD SUGAR DIAGNOSTIC 1 EACH STRIP IN SCH ×4 (00:35→17:22)
[2020-07-31] MEDS: METOCLOPRAMIDE HCL 10 MG TABLET GT SCH ×4 (00:35→17:14)
[2020-07-31] MEDS: INSULIN REGULAR, HUMAN 100 UNIT/ML 3 ML VIAL SQ PRN ×4 (00:38→17:21)
[2020-07-31] MEDS: NEPRO 1,000 ML BOTTLE GT PRN (01:50)
[2020-07-31] MEDS: ALBUTEROL SULFATE INH 18 GM HFA.AER.AD IH SCH ×4 (02:29→19:55)
[2020-07-31 04:00] VITALS: BP 106/44
[2020-07-31] MEDS: MEROPENEM 500 MG in IV NS 0.9% 50 ML IV SCH ×2 (04:06→16:00)
[2020-07-31 06:34] LABS: BASOPHILS # (AUTO) 0.1 /CMM (0.0-0.2); BASOPHILS % (AUTO) 0.4 % (0.0-2.0); EOSINOPHILS % (AUTO) 0.1 % (0.0-6.0); HEMATOCRIT 25 % (39-51); HEMOGLOBIN 7.7 g/dL (13.5-17.5); LYMPHOCYTES # (AUTO) 1.6 /CMM (0.8-4.8); LYMPHOCYTES % (AUTO) 6.2 % (20.0-44.0); MEAN CORPUSCULAR HGB CONC 31 g/dl (31.0-36.0); MEAN CORPUSCULAR VOLUME 91 fL (80-96); MONOCYTES # (AUTO) 2.1 /CMM (0.1-1.30); MONOCYTES % (AUTO) 8.2 % (2.0-12.0); NEUTROPHILS # (AUTO) 21.4 /CMM (1.8-8.9); NEUTROPHILS % (AUTO) 85.1 % (43.0-81.0); PLATELET COUNT (AUTO) 175 /CMM (150-450); RED BLOOD CELL COUNT(AUTO) 2.76 MIL/uL (4.5-6.0); WHITE BLOOD COUNT (AUTO) 25.2 K/uL (4.3-11.0)
[2020-07-31 06:57] LABS: CALCIUM, SERUM 7.8 mg/dL (8.5-10.1); CREATININE 2.9 mg/dL (0.6-1.3); MAGNESIUM 2.1 mg/dL (1.8-2.4); PHOSPHORUS 2.4 mg/dL (2.5-4.9); POTASSIUM 3.7 mmol/L (3.5-5.1)
[2020-07-31] MEDS: ACETAMINOPHEN 325 MG TABLET PO PRN ×2 (07:26→21:16)
[2020-07-31 08:00] VITALS: BP 116/52
--- NOTE | 2020-07-31 08:00 | NUR ---
FORENSIC INVESTIGATOR NOTE PATIENT IN BED WITH TRACH TO VENT SETTING ORDERED, ON TELE MONITOR SR - HR 88P PATIENT ON GT FEEDING WITH 10 CC RESIDUAL NOTED, LEFT HAND IV INTACT FLUSH WELL, TEMPERATURE OF 100.8 TYLENOL GIVEN BED IN LOWEST AND LOCK POSITION, CALL LIGHT WITHIN REACH, SAFETY MEASURES IMPLEMENTED, WILL CONTINUE TO MONITOR
[2020-07-31] MEDS: DOCUSATE SODIUM LIQ 100 MG/10 ML UDC GT SCH (08:32)
[2020-07-31] MEDS: FAMOTIDINE (20 MG) 20 MG TABLET GT SCH (08:32)
[2020-07-31] MEDS: FERROUS SULFATE UDC 300 MG/5 ML UDC GT SCH ×3 (08:33→16:26)
[2020-07-31] MEDS: SEVELAMER CARBONATE 800 MG POWD.PACK GT SCH ×3 (08:33→16:26)
[2020-07-31] MEDS: ESCITALOPRAM OXALATE (10 MG) 10 MG TABLET GT SCH (08:33)
[2020-07-31] MEDS: LINAGLIPTIN 5 MG TABLET GT SCH (08:33)
[2020-07-31] MEDS: PANTOPRAZOLE 40 MG/PACK PACK GT SCH (08:33)
[2020-07-31] MEDS: VIT B CMPLX 3/FA/VIT C/BIOTIN 1 TAB TABLET GT SCH (08:34)
[2020-07-31] MEDS: HEPARIN SODIUM, PORCINE 5000 UNITS/1 ML VIAL SQ SCH ×2 (08:35→21:43)
[2020-07-31] MEDS: ASPIRIN 81 MG TAB.CHEW GT SCH (08:36)
[2020-07-31] MEDS: AMLODIPINE BESYLATE 5 MG TABLET GT SCH (08:36)
[2020-07-31] MEDS: FLUCONAZOLE (100 MG) 100 MG TABLET GT SCH (08:37)
[2020-07-31] MEDS: METOPROLOL TARTRATE 25 MG TABLET GT SCH ×2 (08:37→21:15)
[2020-07-31] MEDS: DAKINS QUARTER STRENGTH (0.125%) 480 ML BOTTLE TOP SCH (08:37)
[2020-07-31 09:14] LABS: LYMPHOCYTES % (MANUAL) 6 % (16-48); MONOCYTES % (MANUAL) 8 % (0-11.0); NEUTROPHILS % (MANUAL) 86 (42-76)
--- NOTE | 2020-07-31 09:14 | NUR ---
outbound telemarketer note Natalie rn program support specialist id at bedside ,aware that t 100.8 Tylenol via g tube given
--- NOTE | 2020-07-31 10:45 | NUR ---
telecommunications support note dr young temporary help agency referral clerk aware that trach suction with large amt secretion and t 100.8 ok to give Tylenol and cont suction , will cont to f\u
--- NOTE | 2020-07-31 11:28 | NUR ---
CONTROL INTEGRATION ENGINEER NOTE PER JAMES TRINH TRAINING DEVELOPER, NO HD TODAY
[2020-07-31 12:00] VITALS: BP 97/36
--- NOTE | 2020-07-31 14:59 | NUR ---
television installer helper note stool for ob collected as ordered ,keep clean dry
[2020-07-31 15:25] LABS: OCCULT BLOOD STOOL NEGATIVE (NEGATIVE)
[2020-07-31 16:00] VITALS: BP 109/48
--- NOTE | 2020-07-31 17:47 | NUR ---
PLEAT TAPER NOTE ROUNDS MADE, ALL MEEDS ATTENDED WITH TRACH TO VENT SETTING ORDERED .BED IN LOWEST AND LOCKED POSITION, WILL CONT TO MONITOR
--- NOTE | 2020-07-31 18:19 | NUR ---
DIGITAL RECRUITER NOTES PATIEN IN BED OPEN EYES NON VERBAL OBTUNDED GT FEEDING TOLERATED, PATIENT WITH TRACH AND VENT ORDERED, TRACH CARE DONE, ALL NEEDS ATTENDED, TURNED AND REPOSITION, SAFETY MEASURES IMPLEMENTED KEPT CLEAN AND DRY, WILL ENDORSE TO UPCOMING NURSE.
--- NOTE | 2020-07-31 19:30 | NUR ---
TEST CENTER ADMINISTRATOR OPENING NOTE RECEIVED PATIENT IN BED. NONVERBAL. ON MECHANICAL VENT SHILEY #6 SETTINGS TV 500 FIO2 30% PEEP 5. IN NO RESP DISTRESS. NO S/S PAIN AT THIS TIME. EXTERNAL TELE MONITOR READS SINUS RHYTHM HR 90S. IN NO APPARENT DISTRESS. IV ACCESS IN LFA#20 PATENT AND SALINE LOCKED. GTUBE IS PRESENT RUNNING NEPRO@45ML/HR. BED IS LOW AND LOCKED, HOB ELEVATED IN SEMI FOWLERS, SIDE RIALS UP X3, WILL CONTINUE TO MONITOR THROUGHOUT SHIFT.
--- NOTE | 2020-07-31 19:55 | NUR ---
RCVD TRACH PT WITH SHILEY 6 XLT ON VENT WITH THE SETTINGS OF AC 24,500,30%, PEEP 5. PT IS AWAKE AND NON VERBAL. Q6 MDI INHALER 1 PUFF GIVEN PER MD'S ORDER . SUCTIONED SMALL AMOUNT OF YELLOWISH WHITE SECRETIONS. VENT PLUGGED INTO RED OUTLET, VENT ALARMS SET AND AUDIBLE. NO RESPIRATORY DISTRESS NOTED AT THIS TIME. WILL CONTINUE TO MONITOR T/O SHIFT.
[2020-07-31 20:00] VITALS: BP 124/54
[2020-07-31] MEDS: LATANOPROST EYE DROP 0.005% 2.5 ML BOTTLE EACHEYE SCH (21:16)
--- NOTE | 2020-07-31 21:43 | NUR ---
telecommunications specialist note infoirmed erp consultant SYSTEMS ARCHITECT, ion bass, that patient has heparin 5000 unit scheduled and h/h is 7.7/25 plt 175. no s/s bleeding. SYSTEMS ARCHITECT stated ok to give. order read back noted and carried out.
[2020-08-01] VITALS (7 sets, daily range): BP systolic 104–126; BP diastolic 50–60
[2020-08-01] MEDS: BLOOD SUGAR DIAGNOSTIC 1 EACH STRIP IN SCH ×4 (00:29→18:24)
[2020-08-01] MEDS: METOCLOPRAMIDE HCL 10 MG TABLET GT SCH ×4 (00:29→18:32)
[2020-08-01] MEDS: INSULIN REGULAR, HUMAN 100 UNIT/ML 3 ML VIAL SQ PRN ×4 (00:46→18:33)
[2020-08-01] MEDS: ALBUTEROL SULFATE INH 18 GM HFA.AER.AD IH SCH ×4 (01:17→19:30)
[2020-08-01] MEDS: MEROPENEM 500 MG in IV NS 0.9% 50 ML IV SCH ×2 (03:58→16:22)
[2020-08-01 06:28] LABS: BASOPHILS # (AUTO) 0.1 /CMM (0.0-0.2); BASOPHILS % (AUTO) 0.2 % (0.0-2.0); EOSINOPHILS % (AUTO) 0.7 % (0.0-6.0); HEMATOCRIT 26 % (39-51); HEMOGLOBIN 7.7 g/dL (13.5-17.5); LYMPHOCYTES # (AUTO) 2.1 /CMM (0.8-4.8); LYMPHOCYTES % (AUTO) 7.8 % (20.0-44.0); MEAN CORPUSCULAR HGB CONC 29 g/dl (31.0-36.0); MEAN CORPUSCULAR VOLUME 96 fL (80-96); MONOCYTES # (AUTO) 1.8 /CMM (0.1-1.30); MONOCYTES % (AUTO) 6.8 % (2.0-12.0); NEUTROPHILS # (AUTO) 22.6 /CMM (1.8-8.9); NEUTROPHILS % (AUTO) 84.5 % (43.0-81.0); PLATELET COUNT (AUTO) 164 /CMM (150-450); RED BLOOD CELL COUNT(AUTO) 2.72 MIL/uL (4.5-6.0); WHITE BLOOD COUNT (AUTO) 26.8 K/uL (4.3-11.0)
[2020-08-01 07:17] LABS: CALCIUM, SERUM 8.6 mg/dL (8.5-10.1); CREATININE 3.5 mg/dL (0.6-1.3); MAGNESIUM 2.1 mg/dL (1.8-2.4); PHOSPHORUS 2.7 mg/dL (2.5-4.9); POTASSIUM 4.2 mmol/L (3.5-5.1)
--- NOTE | 2020-08-01 07:30 | NUR ---
Upon endorsement , patient noted with infiltrated IV. Site warm to touch to left arm.
--- NOTE | 2020-08-01 07:32 | NUR ---
MEDICAL OFFICE COORDINATOR CLOSING NOTE PATIENT RESTING IN BED. NONVERBAL. REMAINS ON MECHANICAL VENTNO CHANGES IN SETTINGS. NO RESP DISTRESS. NO S/S PAIN. TELE MONITOR READS SINUS RHYTHM. MANAGED TEMP WITH TYLENOL AND ICE BAGS. IV ACCESS MAINTAINED IN LFA#20. GTUBE RUNNING NEPRO@45ML/HR. BED REMAINS LOW AND LOCKED, HOB ELEVATED IN SEMI FOWLERS, SIDE RIALS UP X3, WILL ENDORSE TO ONCOMING SHIFT.
--- NOTE | 2020-08-01 07:35 | NUR ---
RN OPENING NOTE Patient received in bed in stable condition. On mechanical vent setting with 02 sat of 96%. Noted with iv site infiltrated. Patient on g tube feeding edward well. HOB kept elevated to prevent aspiration. Will continue to monitor.
[2020-08-01] MEDS: DAKINS QUARTER STRENGTH (0.125%) 480 ML BOTTLE TOP SCH (09:00)
[2020-08-01 09:13] LABS: IRON, SERUM 30 ug/dl (50-175); TOTAL IRON BINDING CAPACITY 98 ug/dl (250-450)
[2020-08-01 09:46] LABS: FERRITIN 1674 ng/mL (8-388)
[2020-08-01] MEDS ORDERED: ERGOCALCIFEROL (VITAMIN D 2) 50,000 UNIT CAPSULE PO SCH (10:00)
[2020-08-01] MEDS: LINAGLIPTIN 5 MG TABLET GT SCH (10:42)
[2020-08-01] MEDS: VIT B CMPLX 3/FA/VIT C/BIOTIN 1 TAB TABLET GT SCH (10:43)
[2020-08-01] MEDS: FLUCONAZOLE (100 MG) 100 MG TABLET GT SCH (10:43)
[2020-08-01] MEDS: PANTOPRAZOLE 40 MG/PACK PACK GT SCH (10:43)
[2020-08-01] MEDS: ESCITALOPRAM OXALATE (10 MG) 10 MG TABLET GT SCH (10:43)
[2020-08-01] MEDS: FERROUS SULFATE UDC 300 MG/5 ML UDC GT SCH ×3 (10:43→16:22)
[2020-08-01] MEDS: FAMOTIDINE (20 MG) 20 MG TABLET GT SCH (10:43)
[2020-08-01] MEDS: SEVELAMER CARBONATE 800 MG POWD.PACK GT SCH ×3 (10:44→16:22)
[2020-08-01] MEDS: DOCUSATE SODIUM LIQ 100 MG/10 ML UDC GT SCH (10:44)
[2020-08-01] MEDS: METOPROLOL TARTRATE 25 MG TABLET GT SCH ×2 (10:45→22:33)
[2020-08-01] MEDS: ASPIRIN 81 MG TAB.CHEW GT SCH (10:45)
[2020-08-01] MEDS: AMLODIPINE BESYLATE 5 MG TABLET GT SCH (10:45)
[2020-08-01] MEDS: HEPARIN SODIUM, PORCINE 5000 UNITS/1 ML VIAL SQ SCH ×2 (10:46→22:35)
--- NOTE | 2020-08-01 11:00 | NUR ---
Multiple PIV attempts tried to no avial, Informed FREEZER MACHINE OPERATOR Wilstein and received orders for Midline insertion. Order noted and carried out. IV team and quality control supervisor made aware.
[2020-08-01] MEDS ORDERED: ERGOCALCIFEROL (VITAMIN D2) 8,000 UNIT/ML GT SCH (12:00)
[2020-08-01] MEDS ORDERED: CEFTAZIDIME 1 G in IV D5W 50 ML IV SCH (14:00)
[2020-08-01] MEDS: EPOETIN ALFA-EPBX 10,000 UNIT/ML VIAL SQ SCH (15:37)
[2020-08-01] MEDS: ACETAMINOPHEN 325 MG TABLET PO PRN (16:26)
[2020-08-01] MEDS: NEPRO 1,000 ML BOTTLE GT PRN (19:21)
--- NOTE | 2020-08-01 20:00 | NUR ---
SCALP TREATMENT SPECIALIST NOTES PATIENT IN BED OPEN EYES NON VERBAL OBTUNDED GT FEEDING NEPHRO AT 45CC/HR WELL TOLERATED NO RESIDUAL NOTED , PATIENT WITH TRACH AND VENT ORDERED, TRACH CARE DONE,NO SOB NO DISTRESS NOTED ,V/S STABLE AFEBRILE .FAMILY AT BEDSIDE MADE AWARE OF PTS CONDITION .AND TRANFER TO [address] [place] [address] [id number]. ALL NEEDS ATTENDED TOO . HD TREATMENT ON GOING AT THIS TIME , TURNED AND REPOSITION, SAFETY MEASURES IMPLEMENTED KEPT CLEAN AND DRY, WILL CONTINUE TO MONITOR.
--- NOTE | 2020-08-01 20:04 | NUR ---
RN CLOSING NOTE Patient in bed in stable condition. On mechanical vent setting with 02 sat of 99%. Patient noted with temp of 100.7 and was given prn tylenol with good effect. Post med temp was 98.9. Patient was provided wound care and turned and repositioned q2h and prn.Endorsed to next shift for NIKA/
--- NOTE | 2020-08-01 22:30 | NUR ---
director telemetry notes HD dialysis treatment done with 2 liters out , all due meds given as ordered .
[2020-08-01] MEDS: LATANOPROST EYE DROP 0.005% 2.5 ML BOTTLE EACHEYE SCH (22:41)
--- NOTE | 2020-08-01 22:55 | NUR ---
rotary furnace operator notes Transfer pts to [id number] report given to Love redding for continuity of care , pts continue on vent as tolerated.
[2020-08-02] VITALS: BP 116/55
[2020-08-02] MEDS: METOCLOPRAMIDE HCL 10 MG TABLET GT SCH ×5 (00:16→23:38)
[2020-08-02] MEDS: BLOOD SUGAR DIAGNOSTIC 1 EACH STRIP IN SCH ×5 (00:22→23:52)
[2020-08-02] MEDS: INSULIN REGULAR, HUMAN 100 UNIT/ML 3 ML VIAL SQ PRN ×4 (00:25→23:51)
[2020-08-02] MEDS: ALBUTEROL SULFATE INH 18 GM HFA.AER.AD IH SCH ×5 (01:14→20:10)
[2020-08-02] MEDS: MEROPENEM 500 MG in IV NS 0.9% 50 ML IV SCH ×2 (03:02→16:52)
[2020-08-02 04:00] VITALS: BP_SYST 113; BP_SYST 116; BP_DIAS 55; BP_DIAS 56
--- NOTE | 2020-08-02 06:17 | NUR ---
RN NOTES PM SHIFT AWAKE, VENTILATOR DEPENDENT, NOT IN APPARENT PAIN, NEPHRO FEEDING, OFF AT 0000, ON AT 0600, MERREM, ACCUCHECK AND SLIDING SCALE, WOUND CARE PERFORMED, WATERY BM, PLANNED DEBRIDEMENT, CONSENT SIGNED AND IN CHART.
[2020-08-02 07:22] LABS: BASOPHILS # (AUTO) 0.1 /CMM (0.0-0.2); BASOPHILS % (AUTO) 0.4 % (0.0-2.0); EOSINOPHILS % (AUTO) 1.1 % (0.0-6.0); HEMATOCRIT 26 % (39-51); HEMOGLOBIN 7.7 g/dL (13.5-17.5); LYMPHOCYTES # (AUTO) 1.4 /CMM (0.8-4.8); LYMPHOCYTES % (AUTO) 6.3 % (20.0-44.0); MEAN CORPUSCULAR HGB CONC 29 g/dl (31.0-36.0); MEAN CORPUSCULAR VOLUME 95 fL (80-96); MONOCYTES # (AUTO) 1.2 /CMM (0.1-1.30); MONOCYTES % (AUTO) 5.4 % (2.0-12.0); NEUTROPHILS # (AUTO) 19.8 /CMM (1.8-8.9); NEUTROPHILS % (AUTO) 86.8 % (43.0-81.0); PLATELET COUNT (AUTO) 162 /CMM (150-450); RED BLOOD CELL COUNT(AUTO) 2.76 MIL/uL (4.5-6.0); WHITE BLOOD COUNT (AUTO) 22.8 K/uL (4.3-11.0)
--- NOTE | 2020-08-02 07:25 | NUR ---
DIRT BIKE RACER OPENING NOTE RECEIVED PATIENT IN BED. NON VERBAL, OPENS EYES. NO SOB NOTED. ON VENT SHILEY S#6 WITH SETTINGS AC 24 TV 500 FI02 30% PEEP 5. NO S/S OF RESPIRATORY DISTRESS. TELE READING SHOWS SR 83. IV ACCESS ON ZANE MIDLINE #18 G, INTACT AND PATENT. NEPHRO RUNNING AT 45 ML/HR, TOLERATING WELL. SAFETY MEASURES MAINTAINED, BED IN LOWEST POSITION, BRAKES LOCKED. SIDE RAILS UP X2. CALL LIGHT WITHIN REACH. WILL CONTINUE PLAN OF CARE.
[2020-08-02] MEDS: PANTOPRAZOLE 40 MG/PACK PACK GT SCH (07:38)
[2020-08-02 08:00] VITALS: BP 110/55
[2020-08-02] MEDS: DOCUSATE SODIUM LIQ 100 MG/10 ML UDC GT SCH (09:04)
[2020-08-02] MEDS: FERROUS SULFATE UDC 300 MG/5 ML UDC GT SCH ×3 (09:04→16:59)
[2020-08-02] MEDS: ASPIRIN 81 MG TAB.CHEW GT SCH (09:05)
[2020-08-02] MEDS: ESCITALOPRAM OXALATE (10 MG) 10 MG TABLET GT SCH (09:05)
[2020-08-02] MEDS: FAMOTIDINE (20 MG) 20 MG TABLET GT SCH (09:05)
[2020-08-02] MEDS: FLUCONAZOLE (100 MG) 100 MG TABLET GT SCH (09:05)
[2020-08-02] MEDS: AMLODIPINE BESYLATE 5 MG TABLET GT SCH (09:06)
[2020-08-02] MEDS: HEPARIN SODIUM, PORCINE 5000 UNITS/1 ML VIAL SQ SCH ×2 (09:10→21:30)
[2020-08-02] MEDS: METOPROLOL TARTRATE 25 MG TABLET GT SCH ×2 (09:11→21:31)
[2020-08-02] MEDS: VIT B CMPLX 3/FA/VIT C/BIOTIN 1 TAB TABLET GT SCH (09:11)
[2020-08-02] MEDS: SEVELAMER CARBONATE 800 MG POWD.PACK GT SCH ×3 (09:11→16:58)
[2020-08-02] MEDS: DAKINS QUARTER STRENGTH (0.125%) 480 ML BOTTLE TOP SCH (09:35)
[2020-08-02] MEDS ORDERED: SILVER NITRATE APPLICATOR 1 EA BOX TP ONE (10:20)
[2020-08-02 16:00] VITALS: BP 112/58
--- NOTE | 2020-08-02 18:23 | NUR ---
CARPENTER REFRIGERATOR CLOSING NOTE PATIENT IN BED. NON VERBAL, OPENS EYES. NO SOB NOTED. SATURATING WELL AT 97%. ON VENT SHILEY S#6 WITH SETTINGS AC 24 TV 500 FI02 30% PEEP 5. NO S/S OF RESPIRATORY DISTRESS. TELE READING SHOWS SR 73. IV ACCESS ON ZANE MIDLINE #18 G, INTACT AND PATENT. NEPHRO RUNNING AT 45 ML/HR, 5 ML RESIDUAL, TOLERATING FEEDING WELL. ALL DUE MEDS WERE GIVEN OREDERED. WOUND TREATMENT ORDERED. SAFETY MEASURES MAINTAINED, BED IN LOWEST POSITION, BRAKES LOCKED. SIDE RAILS UP X2. CALL LIGHT WITHIN REACH. WILL ENDORSE CONTINUITY OF CARE TO ONCOMING SHIFT.
--- NOTE | 2020-08-02 19:32 | NUR ---
MS RN NOTES RECEIVED PATIENT IN BED. NON VERBAL, OPENS EYES. NO SOB NOTED. SATURATING WELL AT 97%. ON VENT SHILEY S#6 WITH SETTINGS AC 24 TV 500 FI02 30% PEEP 5. NO S/S OF RESPIRATORY DISTRESS. TELE READING SHOWS SR 73. IV ACCESS ON ZANE MIDLINE #18 G, INTACT AND PATENT. NEPHRO RUNNING AT 45 ML/HR, 5 ML RESIDUAL, TOLERATING FEEDING WELL. SAFETY MEASURES MAINTAINED, BED IN LOWEST POSITION, BRAKES LOCKED. SIDE RAILS UP X2. CALL LIGHT WITHIN REACH. WILL CONTINUE TO MONITOR.
[2020-08-02 20:00] VITALS: BP 117/69
[2020-08-02] MEDS: LATANOPROST EYE DROP 0.005% 2.5 ML BOTTLE EACHEYE SCH (21:56)
[2020-08-03] VITALS (7 sets, daily range): BP systolic 102–137; BP diastolic 49–69
[2020-08-03] MEDS: MEROPENEM 500 MG in IV NS 0.9% 50 ML IV SCH ×2 (03:13→17:39)
[2020-08-03] MEDS: METOCLOPRAMIDE HCL 10 MG TABLET GT SCH ×4 (05:52→23:57)
[2020-08-03] MEDS: BLOOD SUGAR DIAGNOSTIC 1 EACH STRIP IN SCH ×3 (06:01→17:40)
[2020-08-03] MEDS: INSULIN REGULAR, HUMAN 100 UNIT/ML 3 ML VIAL SQ PRN ×2 (06:04→12:25)
--- NOTE | 2020-08-03 06:40 | NUR ---
LOG CUTTER NOTES PATIENT IN BED. NON VERBAL A/O X 1-2 ABLE TO NOT YES AND NO. NO SOB NOTED. SATURATING WELL AT 97%. ON VENT SHILEY S#6 WITH SETTINGS AC 24 TV 500 FI02 30% PEEP 5. NO S/S OF RESPIRATORY DISTRESS. TELE READING SHOWS SR 73. IV ACCESS ON ZANE MIDLINE #18 G, INTACT AND PATENT. NEPHRO RUNNING AT 45 ML/HR, TOLERATING FEEDING WELL. SAFETY MEASURES MAINTAINED, BED IN LOWEST POSITION, BRAKES LOCKED. ALL DUE MEDS GIVEN AND TOLERATED WELL. KEPT CLEAN AND DRY AT ALL TIMES.SIDE RAILS UP X2. CALL LIGHT WITHIN REACH. WILL ENDORSE CARE TO DAY SHIFT NURSE.
[2020-08-03 07:10] LABS: CALCIUM, SERUM 8.2 mg/dL (8.5-10.1); CREATININE 3.1 mg/dL (0.6-1.3); MAGNESIUM 1.9 mg/dL (1.8-2.4); PHOSPHORUS 3.1 mg/dL (2.5-4.9)
[2020-08-03 07:22] LABS: BASOPHILS % (AUTO) 0.2 % (0.0-2.0); HEMATOCRIT 23 % (39-51); LYMPHOCYTES # (AUTO) 1.3 /CMM (0.8-4.8); LYMPHOCYTES % (AUTO) 7.4 % (20.0-44.0); MEAN CORPUSCULAR HGB CONC 30 g/dl (31.0-36.0); MEAN CORPUSCULAR VOLUME 93 fL (80-96); MONOCYTES # (AUTO) 0.9 /CMM (0.1-1.30); MONOCYTES % (AUTO) 5.4 % (2.0-12.0); NEUTROPHILS # (AUTO) 14.8 /CMM (1.8-8.9); PLATELET COUNT (AUTO) 156 /CMM (150-450); RED BLOOD CELL COUNT(AUTO) 2.45 MIL/uL (4.5-6.0); WHITE BLOOD COUNT (AUTO) 17.6 K/uL (4.3-11.0)
[2020-08-03 07:30] LABS: HEMOGLOBIN 6.9 g/dL (13.5-17.5)
--- NOTE | 2020-08-03 07:55 | NUR ---
TELE/RN OPENING NOTES RECEIVED PATIENT ON BED, ALERT AND ORIENTED X 1-2 NONVERBAL. PATIENT IS ON VENTILATOR AT THE PRESCRIBED SETTINGS . PATIENT IN NO APPARENT RESPIRATORY DISTRESS NOTED. NO SIGN AND SYMPTOM OF PAIN NOTED AT THIS TIME. TELE MONITOR SINUS RHYTHM 64 BPM. HEMOGLOBIN 6.9 REENA RAUSCH WAS AWARE AND ORDER 1 UNIT PRBC WITH HD NOTED AND CARRIED OUT. WILL CONTINUE TO MONITOR.
[2020-08-03] MEDS: ALBUTEROL SULFATE INH 18 GM HFA.AER.AD IH SCH ×3 (07:57→19:57)
[2020-08-03] MEDS: FERROUS SULFATE UDC 300 MG/5 ML UDC GT SCH ×3 (08:52→17:12)
[2020-08-03] MEDS: DOCUSATE SODIUM LIQ 100 MG/10 ML UDC GT SCH (08:53)
[2020-08-03] MEDS: SEVELAMER CARBONATE 800 MG POWD.PACK GT SCH ×3 (08:53→17:12)
[2020-08-03] MEDS: ASPIRIN 81 MG TAB.CHEW GT SCH (08:53)
[2020-08-03] MEDS: ESCITALOPRAM OXALATE (10 MG) 10 MG TABLET GT SCH (08:53)
[2020-08-03] MEDS: PANTOPRAZOLE 40 MG/PACK PACK GT SCH (08:54)
[2020-08-03] MEDS: FAMOTIDINE (20 MG) 20 MG TABLET GT SCH (08:54)
[2020-08-03] MEDS: LINAGLIPTIN 5 MG TABLET GT SCH (08:54)
[2020-08-03] MEDS: FLUCONAZOLE (100 MG) 100 MG TABLET GT SCH (08:54)
[2020-08-03] MEDS: HEPARIN SODIUM, PORCINE 5000 UNITS/1 ML VIAL SQ SCH ×2 (08:56→20:34)
[2020-08-03] MEDS: AMLODIPINE BESYLATE 5 MG TABLET GT SCH (08:57)
[2020-08-03] MEDS: METOPROLOL TARTRATE 25 MG TABLET GT SCH ×2 (08:57→20:31)
[2020-08-03] MEDS: DAKINS QUARTER STRENGTH (0.125%) 480 ML BOTTLE TOP SCH (09:36)
--- NOTE | 2020-08-03 09:47 | NUR ---
TELE/RN NOTES HEMOGLOBIN 6.9 HEMATOCRIT 23 PLATELET 156 HEPARIN 5000 U SUBCUTANEOUS NOT ADMINISTERED. BP 137/53 P 77 PATIENT HAVE HEMODIALYSIS TODAY METOPROLOL 25 MG 1 TAB NORVASC 5MG 1 TAB VIA GTUBE NOT ADMINISTERED. WILL CONTINUE TO MONITOR.
[2020-08-03] MEDS: VIT B CMPLX 3/FA/VIT C/BIOTIN 1 TAB TABLET GT SCH (10:06)
[2020-08-03] MEDS: NEPRO 1,000 ML BOTTLE GT PRN (10:07)
[2020-08-03 10:30] LABS: BAND % (MANUAL) 1 % (0.0-5.0); EOSINOPHILS % (MANUAL) 5 % (0-4); LYMPHOCYTES % (MANUAL) 7 % (16-48); MONOCYTES % (MANUAL) 7 % (0-11.0); NEUTROPHILS % (MANUAL) 80 (42-76)
--- NOTE | 2020-08-03 19:11 | NUR ---
TELE/RN CLOSING NOTES PATIENT IS ON BED, AWAKE ALERT AND ORIENTED X 1. PATIENT IS ON VENT DEPENDENT AT THE PRESCRIBED SETTING SATURATION 97 %. PATIENT IN NO APPARENT RESPIRATORY DISTRESS NOTED. NO COMPLAINED OF PAIN NOTED AT THIS TIME. TELE MONITOR SINUS RHYTHM 79 BPM. IV ACCESS AT RIGHT UPPER MIDLINE PATENT AND INTACT. SEEN AND EXAMINED BY MD WITH ORDERS MADE AND CARRIED OUT. ALL DUE MEDICATIONS WAS GIVEN. ALL NEEDS WAS ATTENDED. PATIENT IS FOR BLOOD TRANSFUSION TODAY. WAS WILL ENDORSED TO BOW TACKER FOR NIKA.
--- NOTE | 2020-08-03 20:00 | NUR ---
MOLD LAMINATOR OPENING NOTE RECEIVED PT IN BED. PT IS NON VERBAL, OPENS EYES. NO SOB NOTED. SATURATING WELL AT 100%. ON VENT SHILEY S#6 WITH SETTINGS AC 24 TV 500 FI02 30% PEEP 5. NO S/S OF RESPIRATORY DISTRESS. TELE READING SHOWS SR 84. IV ACCESS ON ZANE MIDLINE #18 G, INTACT AND PATENT. NEPHRO RUNNING AT 45 ML/HR, 5 ML RESIDUAL, TOLERATING FEEDING WELL. SAFETY MEASURES MAINTAINED. BED IN LOWEST LOCKED POSITION, HOB ELEVATED, SIDE RAILS UP X2. CALL LIGHT AND TABLE WITHIN REACH. WILL CONTINUE WITH PLAN OF CARE.
--- NOTE | 2020-08-03 21:00 | NUR ---
WITHHELD LOPRESSOR 25 MG PO DUE TO DECREASED BP 102/56. WITHHELD HEPARIN 5000 UNITS SQ DUE TO CRITICAL LAB VALUE HGB 6.9. ORDER RECEIVED FROM REENA DOLL HIRED HELP TO ADMINISTER 1 PRBC. WILL CONTINUE TO MONITOR.
--- NOTE | 2020-08-03 21:38 | NUR ---
PT STARTED ON BLOOD TRANSFUSION 1 PRBC. BLOOD CONSENT VERIFIED. PRE TRANSFUSION VS BP 102/56, HR 84, RR 20, T 98.6, SPO2 100%. BLOOD PICKED UP FROM LAB AND VERIFIED WITH CONVEYOR WEIGHER OPERATOR. NO LEAKAGE, CLOTS, OR DISCOLORATION NOTED. BLOOD VERIFIED AT PT'S BEDSIDE BY TWO NURSES PRIOR TO STARTING. WILL CONTINUE TO MONITOR AND REASSESS FOR ANY TRANSFUSION REACTIONS.
[2020-08-03] MEDS: LATANOPROST EYE DROP 0.005% 2.5 ML BOTTLE EACHEYE SCH (22:24)
[2020-08-04] VITALS (7 sets, daily range): BP systolic 108–127; BP diastolic 58–64
[2020-08-04] MEDS: BLOOD SUGAR DIAGNOSTIC 1 EACH STRIP IN SCH ×4 (00:19→18:25)
[2020-08-04] MEDS: INSULIN REGULAR, HUMAN 100 UNIT/ML 3 ML VIAL SQ PRN ×4 (00:31→18:28)
[2020-08-04] MEDS: ALBUTEROL SULFATE INH 18 GM HFA.AER.AD IH SCH ×4 (01:26→20:07)
[2020-08-04] MEDS: MEROPENEM 500 MG in IV NS 0.9% 50 ML IV SCH (03:44)
[2020-08-04] MEDS: METOCLOPRAMIDE HCL 10 MG TABLET GT SCH ×3 (05:14→18:25)
--- NOTE | 2020-08-04 06:31 | NUR ---
SUPERVISOR HEAVY EQUIPMENT CLOSING NOTE PT IS AWAKE IN BED AT THIS TIME. PT IS NON VERBAL, OPENS EYES. NO SOB NOTED. SATURATING WELL AT 100%. ON VENT SHILEY S#6 WITH SETTINGS AC 24 TV 500 FI02 30% PEEP 5. NO S/S OF RESPIRATORY DISTRESS. TELE READING SHOWS SR 75. IV ACCESS IS INTACT, PATENT, AND FLUSHING WELL. NEPHRO RUNNING AT 45 ML/HR, 5 ML RESIDUAL, TOLERATING FEEDING WELL. ALL NEEDS HAVE BEEN MET. SAFETY MEASURES MAINTAINED AT ALL TIMES. BED IN LOWEST LOCKED POSITION, HOB ELEVATED, SIDE RAILS UP X2. CALL LIGHT AND TABLE WITHIN REACH. WILL ENDORSE TO ONCOMING NURSE FOR CONTINUITY OF CARE.
[2020-08-04 06:49] LABS: BASOPHILS % (AUTO) 0.2 % (0.0-2.0); HEMATOCRIT 26 % (39-51); HEMOGLOBIN 8.1 g/dL (13.5-17.5); LYMPHOCYTES # (AUTO) 1.4 /CMM (0.8-4.8); LYMPHOCYTES % (AUTO) 7.2 % (20.0-44.0); MEAN CORPUSCULAR HGB CONC 31 g/dl (31.0-36.0); MEAN CORPUSCULAR VOLUME 92 fL (80-96); MONOCYTES % (AUTO) 5.2 % (2.0-12.0); NEUTROPHILS # (AUTO) 16.9 /CMM (1.8-8.9); NEUTROPHILS % (AUTO) 84.4 % (43.0-81.0); PLATELET COUNT (AUTO) 164 /CMM (150-450); RED BLOOD CELL COUNT(AUTO) 2.85 MIL/uL (4.5-6.0)
[2020-08-04 07:11] LABS: CREATININE 2.8 mg/dL (0.6-1.3); PHOSPHORUS 2.8 mg/dL (2.5-4.9); POTASSIUM 3.4 mmol/L (3.5-5.1)
--- NOTE | 2020-08-04 07:58 | NUR ---
TARIFF CLERK OPENING NOTE PATIENT IS IN BE RESTING. PATIENT IS ON VENT AND TRACH. OXYGEN SATURATION IS AT 98% . PATIENT IS ON TELE MONITOR READING SR. PATIENT IS BED BOUND NEEDS TURNING AND REPOSITIONING EVERY 2HRS. PATIENT HAS MULTIPLE WOUNDS. SAFETY PRECAUTIONS ARE ON. BED IS LOCKED IN THE LOWEST POSITION, WITH SIDE RAILS UP, CALL LIGHT WITHIN THE REACH, WILL CONTINUE TO MONITOR CLOSELY.
[2020-08-04] MEDS: DOCUSATE SODIUM LIQ 100 MG/10 ML UDC GT SCH (10:33)
[2020-08-04] MEDS: VIT B CMPLX 3/FA/VIT C/BIOTIN 1 TAB TABLET GT SCH (10:33)
[2020-08-04] MEDS: ASPIRIN 81 MG TAB.CHEW GT SCH (10:34)
[2020-08-04] MEDS: AMLODIPINE BESYLATE 5 MG TABLET GT SCH (10:34)
[2020-08-04] MEDS: FLUCONAZOLE (100 MG) 100 MG TABLET GT SCH (10:34)
[2020-08-04] MEDS: METOPROLOL TARTRATE 25 MG TABLET GT SCH ×2 (10:34→21:48)
[2020-08-04] MEDS: LINAGLIPTIN 5 MG TABLET GT SCH (10:34)
[2020-08-04] MEDS: PANTOPRAZOLE 40 MG/PACK PACK GT SCH (10:35)
[2020-08-04] MEDS: ESCITALOPRAM OXALATE (10 MG) 10 MG TABLET GT SCH (10:35)
[2020-08-04] MEDS: FERROUS SULFATE UDC 300 MG/5 ML UDC GT SCH ×3 (10:35→18:25)
[2020-08-04] MEDS: SEVELAMER CARBONATE 800 MG POWD.PACK GT SCH ×3 (10:35→18:25)
[2020-08-04] MEDS: DAKINS QUARTER STRENGTH (0.125%) 480 ML BOTTLE TOP SCH (10:41)
[2020-08-04] MEDS: FAMOTIDINE (20 MG) 20 MG TABLET GT SCH (10:44)
[2020-08-04] MEDS: HEPARIN SODIUM, PORCINE 5000 UNITS/1 ML VIAL SQ SCH (10:45)
[2020-08-04 11:35] LABS: EOSINOPHILS % (MANUAL) 4 % (0-4); LYMPHOCYTES % (MANUAL) 4 % (16-48); MONOCYTES % (MANUAL) 10 % (0-11.0); NEUTROPHILS % (MANUAL) 82 (42-76)
[2020-08-04] MEDS: PROSOURCE / PROSTAT (PYXIS) 30 ML UDC GT SCH ×2 (13:34→18:25)
[2020-08-04] MEDS ORDERED: NEPRO 1,000 ML BOTTLE GT PRN (13:34)
[2020-08-04] MEDS: MEROPENEM 1 G in IV NS 0.9% 100 ML IV SCH (13:35)
[2020-08-04] MEDS: EPOETIN ALFA-EPBX 10,000 UNIT/ML VIAL SQ SCH (15:00)
--- NOTE | 2020-08-04 19:25 | NUR ---
EPIC PRELUDE ANALYST CLOSING NOTE PATIENT IS IN BE RESTING. PATIENT IS ON VENT AND TRACH. OXYGEN SATURATION IS AT 98% . PATIENT IS ON TELE MONITOR READING SR 60s. PATIENT IS BED BOUND NEEDS TURNING AND REPOSITIONING EVERY 2HRS. PATIENT HAS MULTIPLE WOUNDS. SAFETY PRECAUTIONS ARE ON. BED IS LOCKED IN THE LOWEST POSITION, WITH SIDE RAILS UP, CALL LIGHT WITHIN THE REACH, ENDORSE PATIENT TO DIRECTOR OF TRANSPORTATION NURSE FOR NIKA.
--- NOTE | 2020-08-04 20:00 | NUR ---
MS/TELE/RN PATIENT IS AWAKE, NON VERBAL, APPEAR COMFORTABLE NO SIGNS OF DISTRESS NOTED, MECHANICA VENTILATOR WORKING WELL, HOB ELEVATED, G TUBE IS CLOGGED, SUCCESSFULLY DECLOGGED NO RESIDUAL NOTED, CALL LIGHT WITHIN REACH. WILL MONITOR.
[2020-08-04] MEDS: LATANOPROST EYE DROP 0.005% 2.5 ML BOTTLE EACHEYE SCH (21:48)
[2020-08-05] VITALS: BP 122/63
[2020-08-05] MEDS: INSULIN REGULAR, HUMAN 100 UNIT/ML 3 ML VIAL SQ PRN ×3 (00:07→13:32)
[2020-08-05] MEDS: BLOOD SUGAR DIAGNOSTIC 1 EACH STRIP IN SCH ×3 (00:08→13:27)
[2020-08-05] MEDS: METOCLOPRAMIDE HCL 10 MG TABLET GT SCH ×3 (00:08→13:28)
[2020-08-05] MEDS: MEROPENEM 1 G in IV NS 0.9% 100 ML IV SCH ×2 (01:03→13:28)
[2020-08-05] MEDS: ALBUTEROL SULFATE INH 18 GM HFA.AER.AD IH SCH ×3 (01:49→13:46)
[2020-08-05 04:00] VITALS: BP 125/61
--- NOTE | 2020-08-05 04:03 | NUR ---
MS/TELE/RN MORNING CARE WAS DONE, TOTAL LINEN CHANGE RENDERED, BM NOTED, CLEANED AND MADE DRY, SACRAL WOUND CARE DONE PER ORDER, REPOSITIONED TO COMFORT, HOB ELEVATED, WILL CONTINUE TO MONITOR.
--- NOTE | 2020-08-05 06:19 | NUR ---
MS/TELE/RN PATIENT APPEAR SLEEPING AT THIS TIME, APPEAR COMFORTABLE, NO SIGNS OF DISTRESS NOTED, G TUBE FEEDING INFUSING, NO RESIDUAL NOTE, HOB ELEVATED, ALL NEEDS ATTENDED AT THIS TIME, WILL CONTINUE TO MONITOR.
[2020-08-05 06:42] LABS: BASOPHILS # (AUTO) 0.1 /CMM (0.0-0.2); BASOPHILS % (AUTO) 0.5 % (0.0-2.0); EOSINOPHILS % (AUTO) 3.7 % (0.0-6.0); HEMATOCRIT 25 % (39-51); HEMOGLOBIN 7.6 g/dL (13.5-17.5); LYMPHOCYTES # (AUTO) 1.5 /CMM (0.8-4.8); LYMPHOCYTES % (AUTO) 9.4 % (20.0-44.0); MEAN CORPUSCULAR HGB CONC 31 g/dl (31.0-36.0); MEAN CORPUSCULAR VOLUME 92 fL (80-96); MONOCYTES # (AUTO) 0.8 /CMM (0.1-1.30); MONOCYTES % (AUTO) 5.3 % (2.0-12.0); NEUTROPHILS # (AUTO) 12.5 /CMM (1.8-8.9); NEUTROPHILS % (AUTO) 81.1 % (43.0-81.0); PLATELET COUNT (AUTO) 163 /CMM (150-450); RED BLOOD CELL COUNT(AUTO) 2.69 MIL/uL (4.5-6.0); WHITE BLOOD COUNT (AUTO) 15.5 K/uL (4.3-11.0)
[2020-08-05 07:01] LABS: PHOSPHORUS 3.2 mg/dL (2.5-4.9); POTASSIUM 3.6 mmol/L (3.5-5.1)
--- NOTE | 2020-08-05 07:52 | NUR ---
INFORMATION MANAGER OPENING NOTE PATIENT IS IN BE RESTING. PATIENT IS ON VENT AND TRACH. OXYGEN SATURATION IS AT 98% . PATIENT IS ON TELE MONITOR READING SR. PATIENT IS BED BOUND NEEDS TURNING AND REPOSITIONING EVERY 2HRS. PATIENT IS ON G-TUBE FEEDING. PATIENT HAS MULTIPLE WOUNDS. SAFETY PRECAUTIONS ARE ON. BED IS LOCKED IN THE LOWEST POSITION, WITH SIDE RAILS UP, CALL LIGHT WITHIN THE REACH, WILL CONTINUE TO MONITOR CLOSELY.
[2020-08-05 08:14] LABS: BAND % (MANUAL) 1 % (0.0-5.0); EOSINOPHILS % (MANUAL) 2 % (0-4); LYMPHOCYTES % (MANUAL) 10 % (16-48); MONOCYTES % (MANUAL) 6 % (0-11.0); NEUTROPHILS % (MANUAL) 81 (42-76)
[2020-08-05 08:17] VITALS: BP 119/59
[2020-08-05] MEDS: AMLODIPINE BESYLATE 5 MG TABLET GT SCH (09:00)
[2020-08-05] MEDS: METOPROLOL TARTRATE 25 MG TABLET GT SCH (09:00)
[2020-08-05] MEDS: ESCITALOPRAM OXALATE (10 MG) 10 MG TABLET GT SCH (09:46)
[2020-08-05] MEDS: DOCUSATE SODIUM LIQ 100 MG/10 ML UDC GT SCH (09:46)
[2020-08-05] MEDS: SEVELAMER CARBONATE 800 MG POWD.PACK GT SCH ×2 (09:46→13:28)
[2020-08-05] MEDS: PROSOURCE / PROSTAT (PYXIS) 30 ML UDC GT SCH ×2 (09:46→13:28)
[2020-08-05] MEDS: PANTOPRAZOLE 40 MG/PACK PACK GT SCH (09:47)
[2020-08-05] MEDS: FAMOTIDINE (20 MG) 20 MG TABLET GT SCH (09:48)
[2020-08-05] MEDS: LINAGLIPTIN 5 MG TABLET GT SCH (09:48)
[2020-08-05] MEDS: FERROUS SULFATE UDC 300 MG/5 ML UDC GT SCH ×2 (09:48→13:28)
[2020-08-05] MEDS: ASPIRIN 81 MG TAB.CHEW GT SCH (09:48)
[2020-08-05] MEDS: VIT B CMPLX 3/FA/VIT C/BIOTIN 1 TAB TABLET GT SCH (09:48)
[2020-08-05] MEDS: FLUCONAZOLE (100 MG) 100 MG TABLET GT SCH (09:48)
[2020-08-05] MEDS: DAKINS QUARTER STRENGTH (0.125%) 480 ML BOTTLE TOP SCH (10:07)
[2020-08-05 12:00] VITALS: BP 107/58
[2020-08-05] MEDS ORDERED: SODI473S8 TOP (12:34)
[2020-08-05] MEDS ORDERED: MERO1VIA23 IV (12:34)
[2020-08-05] MEDS ORDERED: EPOE1000 SQ (12:34)
[2020-08-05] MEDS ORDERED: Prosource GT (12:34)
--- NOTE | 2020-08-05 17:17 | NUR ---
SERVICE COORDINATORSELVAGE MACHINE OPERATOR NOTE PATIENT IS IN NO ACUTE DISTRESS. PATIENT IS BEING DISCHARGED TO SUBACUTE UNIT. PATIENT IS ON TRACH AND VENT. NO SOB NOTED. PATIENT IS ON G-TUBE RUNNING NEPHRO AT 40ML/HR. PATIENT HAS MIDLINE IN THE RIGHT UPPER ARM. PATIENT HAS MULTIPLE WOUNDS. REPORT WAS GIVING FOR THE RECEIVING NURSE, FOR THE ENDORSEMENT OF THE CARE. MD IS AWARE OF DISCHARGE.
== END 2020-08-05 16:55 | DRG 710 ==
LOC: ER 15:38 → TELE1 19:05 → TELE 08-01 22:55
PROVIDERS: ATTEND Nurse Practitioner Acute Care
PROC: 5A1955Z Respiratory Ventilation, Greater than 96 Consecutive Hours (ICD-10-PCS; principal; 2020-07-28)
PROC: 30233N1 Transfusion of Nonautologous Red Blood Cells into Peripheral Vein, Percutaneous Approach (ICD-10-PCS; 2020-07-30)
PROC: 05H533Z Insertion of Infusion Device into Right Subclavian Vein, Percutaneous Approach (ICD-10-PCS; 2020-08-01)
PROC: B546ZZA Ultrasonography of Right Subclavian Vein, Guidance (ICD-10-PCS; 2020-08-01)
PROC: 5A1D70Z Performance of Urinary Filtration, Intermittent, Less than 6 Hours Per Day (ICD-10-PCS; 2020-08-01)
PROC: 0JB70ZZ Excision of Back Subcutaneous Tissue and Fascia, Open Approach (ICD-10-PCS; 2020-08-02)
PROC: 0KBN0ZZ Excision of Right Hip Muscle, Open Approach (ICD-10-PCS; 2020-08-02)
PROC: 0KBP0ZZ Excision of Left Hip Muscle, Open Approach (ICD-10-PCS; 2020-08-02)
DX: A41.9 Sepsis, unspecified organism (principal); G93.40 Encephalopathy, unspecified; I13.2 Hypertensive heart and chronic kidney disease with heart failure and with stage 5 chronic kidney disease, or end stage renal disease; Z99.11 Dependence on respirator [ventilator] status; E46 Unspecified protein-calorie malnutrition; Z93.0 Tracheostomy status; J18.9 Pneumonia, unspecified organism; L89.324 Pressure ulcer of left buttock, stage 4; L89.143 Pressure ulcer of left lower back, stage 3; L89.154 Pressure ulcer of sacral region, stage 4; E11.22 Type 2 diabetes mellitus with diabetic chronic kidney disease; J96.20 Acute and chronic respiratory failure, unspecified whether with hypoxia or hypercapnia; N18.6 End stage renal disease; D64.9 Anemia, unspecified; E78.5 Hyperlipidemia, unspecified; E11.621 Type 2 diabetes mellitus with foot ulcer; Z93.1 Gastrostomy status; L97.419 Non-pressure chronic ulcer of right heel and midfoot with unspecified severity; L97.429 Non-pressure chronic ulcer of left heel and midfoot with unspecified severity; D63.8 Anemia in other chronic diseases classified elsewhere; D68.59 Other primary thrombophilia; E11.40 Type 2 diabetes mellitus with diabetic neuropathy, unspecified; E87.2 Acidosis; I25.2 Old myocardial infarction; I50.9 Heart failure, unspecified; M89.9 Disorder of bone, unspecified; Z20.822 Contact with and (suspected) exposure to COVID-19; Z79.4 Long term (current) use of insulin; Z79.82 Long term (current) use of aspirin; Z86.16 Personal history of COVID-19; Z79.899 Other long term (current) drug therapy; R13.10 Dysphagia, unspecified; R53.2 Functional quadriplegia; N39.0 Urinary tract infection, site not specified; I25.10 Atherosclerotic heart disease of native coronary artery without angina pectoris; E88.09 Other disorders of plasma-protein metabolism, not elsewhere classified; Z68.28 Body mass index [BMI] 28.0-28.9, adult; E11.51 Type 2 diabetes mellitus with diabetic peripheral angiopathy without gangrene; R74.8 Abnormal levels of other serum enzymes; S31.20XA Unspecified open wound of penis, initial encounter; X58.XXXA Exposure to other specified factors, initial encounter; Y93.9 Activity, unspecified; Y92.129 Unspecified place in nursing home as the place of occurrence of the external cause; B96.1 Klebsiella pneumoniae [K. pneumoniae] as the cause of diseases classified elsewhere; Z16.12 Extended spectrum beta lactamase (ESBL) resistance; N40.0 Benign prostatic hyperplasia without lower urinary tract symptoms; Z99.2 Dependence on renal dialysis
CPT/HCPCS: 31720; 36410; 36415; 36600; 71045-TC; 72220-TC; 80048-TC; 80061-TC; 80076-TC; 80202-TC; 82272-TC; 82728-TC; 82803-TC; 82962-TC; 83540-TC; 83605-TC; 83735-TC; 84100-TC; 84443-TC; 84484-TC; 85025-TC; 85652-TC; 85730-TC; 86140-TC; 86850-TC; 87040-TC; 87070-TC; 87081-TC; 87186-TC; 90935-TC; 94002-TC; 94003-TC; 94640; 94640-TC; 94664; 94760-TC; 94762-TC; 94799-TC; 99082-TC; A4623; A6253; A6403; A7526; G0378; J0885; J1644; J1815; J2185; J3370; J7030; J7050; J7060; J8597; P9016; U0003

== ENCOUNTER 2020-08-05 14:31 | Inpatient (IN) | payer OTHER ==
[~2020-08-05] VITALS: Ht 167.6 cm; Wt 79.4 kg
[~2020-08-05 14:31] MED LIST changes: -ACET325T53 GT; +ACET650S26 GT; +ALBU8.5H8 IH; -ASCO500C17 GT; +CEFT1VIA14 IV; -CHOL4PAC GT; +CHOL4PAC2 GT; +CRAN3875 GT; -DEXT1DRO3 OP; -DOCU-141 GT; +DOCU50LI GT; +EPOE1000 SQ; +FERR300L GT; -FERR325T23 GT; +FLUC200T GT; +GLUC1KIT IM; -HEPA100D33 SUBCUT; +HEPA50007 SQ; +INSU100V3 SQ; +LANS30CA56 GT; +LEVO500T90 GT; +MERO1VIA23 IV; -MULT-439 GT; +POLY15DR40 EACHEYE; +Prosource GT; +SODI473S8 TOP; +VANC500P5 IV
--- NOTE | 2020-08-05 17:00 | NUR ---
Admitted 59-year-old male pt from [facility] with diagnoses of chronic respiratory failure, ventilator dependent, tracheostomy, dysphagia with GT, ESRD on HD, sepsis, chronic CHF, DM with neuropathy, HTN, CAD, chronic encephalopathy, chronic anemia due to ESRD, hypoalbuminemia, severe malnutrition, obstructive PAD, GERD, mineral bone disorder, Hx COVID-19. Pt awake and responsive to pain. Pt on vent with setting of AC 24 VT 500 FiO2 30%, has trach tube Shiley # 6 XLT. He has a PEG, started feeding of Nepro 40 mL/hr. Verified orders with Dr Kee. Also clarified Albuterol orders with AGENT Sasha Bateman. She said to change Albuterol from MDI to via neb. Pt is on Merrem for 4 more days. Placed on contact isolation for ESBL wound, ESBL blood, MDRO Acinetobacter baumannii in sputum. Educated staff and pt's family regarding isolation precautions and proper handwashing. Spoke with pt's daughter. She is aware that pt is now in Subacute Room 274, informed her of visitation guidelines. Pt will have HD q Tuesday, Tuesday, Tuesday at [facility]. KENNETH Denis arranged pt's transportation with [facility] [employer], bulk picker time is at 1240 pm. Cleaned pt and made comfortable in bed. HOB elevated to prevent aspiration. Call light within easy reach.
--- NOTE | 2020-08-05 18:16 | NUR ---
RT Placed patient on previous vent settings provided by RT. Pt tolerating well Back up trach and ambu bag at bed side. Will continue to monitor.
[2020-08-05] MEDS ORDERED: NEPRO 1,000 ML BOTTLE GT PRN (19:00)
[2020-08-05] MEDS ORDERED: HYDROGEN PEROXIDE 480 ML BOTTLE TP PRN (19:00)
[2020-08-05] MEDS ORDERED: ALBUTEROL FS 2.5 MG/3 ML VIAL.NEB NEB PRN (19:00)
[2020-08-05] MEDS ORDERED: GLUCAGON,HUMAN RECOMBINANT 1 MG/VIAL VIAL IM PRN (19:30)
[2020-08-05] MEDS ORDERED: ACETAMINOPHEN 650 MG/20.3 ML UDC GT PRN (19:30)
[2020-08-05] MEDS ORDERED: BISACODYL SUPP (10 MG) 10 MG/SUPP.RECT SUPP.RECT RC PRN (19:30)
[2020-08-05 19:40] VITALS: BP 130/64
[2020-08-05] MEDS ORDERED: TUBERCULIN,PURIF.PROT.DERIV. 5 TU/0.1 ML VIAL ID SCH (20:00)
[2020-08-05] MEDS ORDERED: NA PHOS,M-B/NA PHOS,DI-BA 1 EA ENEMA RC PRN (20:00)
[2020-08-05] MEDS ORDERED: POLYVINYL ALCOHOL 15 ML BOTTLE OP PRN (20:00)
--- NOTE | 2020-08-05 20:00 | NUR ---
RN NOTES Received new order from Dr. Kee, noted and carried out.
[2020-08-05] MEDS: ALBUTEROL FS 2.5 MG/3 ML VIAL.NEB NEB SCH (20:15)
[2020-08-05] MEDS: HYDROGEN PEROXIDE 480 ML BOTTLE TP SCH (20:15)
[2020-08-05] MEDS ORDERED: DEXTROSE 50%-WATER 50 ML DISP.SYRIN IV PRN (20:30)
[2020-08-05 20:33] VITALS: BP 118/51
[2020-08-05] MEDS ORDERED: IV NS 0.9% 100 ML BAG IV ONE (20:42)
[2020-08-05] MEDS ORDERED: MEROPENEM 1 G VIAL IV ONE (20:42)
[2020-08-05] MEDS ORDERED: METOPROLOL TARTRATE 25 MG TABLET GT SCH (21:00)
--- NOTE | 2020-08-05 21:00 | NUR ---
RN NOTES Received pt in bed awake and alert. Pt responds to simple commands by nodding head yes or no. On ventilator with prescribed settings. HD catheter to left upper chest, intact with no s/s of bleeding noted. Right upper arm midline intact, patent with no swelling and no bleeding noted. Received new admission orders from Dr. Kee, noted and carried out.
[2020-08-05] MEDS: ATORVASTATIN 40 MG TABLET GT SCH (21:16)
[2020-08-05] MEDS: LATANOPROST EYE DROP 0.005% 2.5 ML BOTTLE OP SCH (21:16)
[2020-08-05] MEDS: HEPARIN SODIUM, PORCINE 5000 UNITS/1 ML VIAL SQ SCH (21:17)
[2020-08-05] MEDS: BLOOD SUGAR DIAGNOSTIC 1 EACH STRIP IN SCH (23:59)
[2020-08-06] MEDS ORDERED: METOCLOPRAMIDE HCL 10 MG/10 ML UDC GT SCH
[2020-08-06] MEDS: INSULIN REGULAR, HUMAN 100 UNIT/ML 3 ML VIAL SQ PRN ×4 (00:03→18:30)
[2020-08-06 00:27] VITALS: BP 118/49
[2020-08-06] MEDS ORDERED: MEROPENEM 1 G in IV NS 0.9% 100 ML IV SCH (01:00)
[2020-08-06] MEDS: ALBUTEROL FS 2.5 MG/3 ML VIAL.NEB NEB SCH ×4 (01:42→20:00)
[2020-08-06] MEDS: BLOOD SUGAR DIAGNOSTIC 1 EACH STRIP IN SCH ×3 (05:48→18:29)
[2020-08-06 08:24] VITALS: BP 145/66
[2020-08-06] MEDS: NEOMY SULF/BACITRAC ZN/POLY 15 GM TUBE TP SCH ×2 (09:00→21:37)
[2020-08-06] MEDS: Z GUARD REMEDY 4 OZ OINT TP SCH ×2 (09:00→21:38)
[2020-08-06] MEDS: ESCITALOPRAM OXALATE (10 MG) 10 MG TABLET GT SCH (09:00)
[2020-08-06] MEDS: POVIDONE-IODINE OINT 28.4 GM TUBE TP SCH ×6 (09:00)
[2020-08-06] MEDS ORDERED: AMLODIPINE BESYLATE 5 MG TABLET GT SCH (09:00)
[2020-08-06] MEDS ORDERED: DAKINS QUARTER STRENGTH (0.125%) 480 ML BOTTLE TOP PRN (09:00)
[2020-08-06] MEDS ORDERED: OMEPRAZOLE 20 MG CAPSULE.DR GT SCH (09:00)
[2020-08-06] MEDS: DAKINS QUARTER STRENGTH (0.125%) 480 ML BOTTLE TOP SCH ×3 (09:00→21:37)
[2020-08-06] MEDS ORDERED: FAMOTIDINE (20 MG) 20 MG TABLET GT SCH (09:00)
[2020-08-06] MEDS: TRIAMCINOLONE ACETONIDE 0.1% CR 15 GM TUBE TP SCH ×2 (09:00→21:37)
--- NOTE | 2020-08-06 09:00 | NUR ---
Patient resting in bed, calm, on vent, tolerating well, Kept HOB elevated at all times to prevent aspiration. Has moderate amount of pale yellow secretions. Suctioned as needed. Left upper chest HD catheter patent and intact, dressing changed. Patient has generalized edema, has midline to right upper arm, patent and intact, On IV ATB Merem for sepsis and wound infection, no adverse reactions noted. Patient for dialysis M, he is scheduled today at 1:30 pm car pick up driver at 12:[address] Kaimnski came and saw patient, made him aware that patient has B/P meds and has dialysis today, ok to hold B/P meds during dialysis day. Faxed clarification orders to pharmacy. Patient on contact isolation ESBL on wound and blood, all precautions observed.
[2020-08-06] MEDS: HYDROGEN PEROXIDE 480 ML BOTTLE TP SCH ×2 (09:03→20:00)
[2020-08-06] MEDS: ASPIRIN 81 MG TAB.CHEW GT SCH (09:32)
[2020-08-06] MEDS: FERROUS SULFATE UDC 300 MG/5 ML UDC GT SCH ×3 (09:33→17:00)
[2020-08-06] MEDS: GLYCOPYRROLATE 1 MG TABLET GT SCH ×3 (09:33→17:00)
[2020-08-06] MEDS: DOCUSATE SODIUM LIQ 100 MG/10 ML UDC GT SCH (09:33)
[2020-08-06] MEDS: VIT B CMPLX 3/FA/VIT C/BIOTIN 1 TAB TABLET GT SCH (09:35)
[2020-08-06] MEDS: LINAGLIPTIN 5 MG TABLET GT SCH (09:35)
[2020-08-06] MEDS: SEVELAMER CARBONATE 800 MG POWD.PACK GT SCH ×3 (09:35→17:00)
[2020-08-06] MEDS: PROSTAT (PYXIS) 30 ML UDC GT SCH ×2 (09:35→12:12)
[2020-08-06] MEDS: HEPARIN SODIUM, PORCINE 5000 UNITS/1 ML VIAL SQ SCH ×2 (09:37→21:37)
--- NOTE | 2020-08-06 10:00 | NUR ---
COVID 19 test done and sent to lab, MRSA surveillance both nares done and sent to lab.
[2020-08-06] MEDS: MEROPENEM 1 G in IV NS 0.9% 100 ML IV SCH ×2 (11:52→21:00)
--- NOTE | 2020-08-06 12:00 | NUR ---
Chaim mahoney pharmacist (Marcus) aware regarding clarification orders of B/P meds. when patient goes to dialysis , has some changes. Chrsytal wound clinical operations consultant came and has recommendation of santyl tx to left lower back wound if med is covered by [facility]. She said she was seeing patient when she was in the hospital, continue with ongoing tx.
--- NOTE | 2020-08-06 13:15 | NUR ---
Called and made social and political studies professor aware that patient not nut picker yet by [facility] transportation, she called [facility] and will nut picker patient in 10 minutes, called [facility] and spoke to Verito and patient is rescheduled for 2:30 pm.
--- NOTE | 2020-08-06 14:10 | NUR ---
Intake Paperwork: This SW called the patients , Vern Schmidt [phone] on 08/06/2020 and reviewed the intake paperwork: (Patient Right's Acknowledgement, Documentation of Preferred Intensity of Care, Conditions of Admission, CDPH Agreement, and Voluntary Prior Express Consent form). Vern expressed understanding and was agreeable reviewing intake paperwork with SW over the phone and providing a wet signature when paperwork arrives via mail. This SW addressed all of the familys questions. Patient's is mostly Djib[place]ian speaking and can understand some Slovak. Vern stated that the intensity of care provided to the pt. should Supportive Care only and No CPR. SW mailed intake paperwork to: Vern [id number] [facility] [id number] along with a copy of the Bill of Rights, for Vern to read over and sign. SW provided Vern with a pre-paid envelope. SW will wait for paperwork to be completed and mailed back by Vern. SW will follow up as needed to assist the family with completing intake paperwork. Per Vern the pt. does not have an advanced healthcare directive not are they conserved. Career Development Associate educated Vern on advanced health care directive and conservatorship and provided her with informational packets. The patient is not oriented enough to complete Advanced Healthcare Directive. Family was receptive to information. SW emailed family a copy of the visitation guidelines and Moderna Covid Vaccine informational sheet to [email or web address]. SW will be available as needed.
--- NOTE | 2020-08-06 14:50 | NUR ---
Patient pickup by [facility] transportation, v/s B/P 140/73, HR 71, RR 22, TEMP. 98.5.
--- NOTE | 2020-08-06 14:56 | NUR ---
KENNETH translated conversation between pt.'s , Vern & charge nurse, Lashaun regarding consent for Lexapro medication. Saurav gave verbal consent for lexapro. Vern also expressed concern stating that pt. was very drowsy at previous facility and she believes it is due to this medication. KENNETH validated Vern's concerns and Lashaun stated she will notify MD if dosage can be reduced or tapered off. SW ill be available as needed.
--- NOTE | 2020-08-06 18:21 | NUR ---
Patient came back from dialysis, patient stable at this time, not in distress, pt. denies pain. v/s 158/56,HR 80, RR 24, Temp. 98.5. Patient kept safe and comfortable.
[2020-08-06 20:00] VITALS: BP 149/69
[2020-08-06] MEDS: PROSOURCE / PROSTAT (PYXIS) 30 ML UDC GT SCH (21:37)
[2020-08-06] MEDS: AMLODIPINE BESYLATE 5 MG TABLET GT SCH (21:37)
[2020-08-06] MEDS: ATORVASTATIN 40 MG TABLET GT SCH (21:38)
[2020-08-06] MEDS: LATANOPROST EYE DROP 0.005% 2.5 ML BOTTLE OP SCH (21:38)
[2020-08-07] MEDS: BLOOD SUGAR DIAGNOSTIC 1 EACH STRIP IN SCH ×5 (00:23→23:52)
[2020-08-07] MEDS: INSULIN REGULAR, HUMAN 100 UNIT/ML 3 ML VIAL SQ PRN ×5 (00:25→23:53)
[2020-08-07] MEDS: TRAMADOL HCL 50 MG TABLET GT PRN ×2 (01:19→12:27)
[2020-08-07] MEDS: ALBUTEROL FS 2.5 MG/3 ML VIAL.NEB NEB SCH ×4 (01:42→19:43)
[2020-08-07] MEDS: OMEPRAZOLE 20 MG CAPSULE.DR GT SCH (06:04)
[2020-08-07] MEDS: NEPRO 1,000 ML BOTTLE GT PRN (06:30)
[2020-08-07 08:00] VITALS: BP 122/62
[2020-08-07] MEDS: HYDROGEN PEROXIDE 480 ML BOTTLE TP SCH ×2 (08:46→19:43)
[2020-08-07] MEDS: MEROPENEM 1 G in IV NS 0.9% 100 ML IV SCH ×2 (08:55→20:50)
[2020-08-07] MEDS: Z GUARD REMEDY 4 OZ OINT TP SCH ×2 (09:00→20:54)
[2020-08-07] MEDS: DAKINS QUARTER STRENGTH (0.125%) 480 ML BOTTLE TOP SCH ×3 (09:00→20:52)
[2020-08-07] MEDS: TRIAMCINOLONE ACETONIDE 0.1% CR 15 GM TUBE TP SCH ×2 (09:00→20:53)
[2020-08-07] MEDS: POVIDONE-IODINE OINT 28.4 GM TUBE TP SCH ×6 (09:00)
[2020-08-07] MEDS: NEOMY SULF/BACITRAC ZN/POLY 15 GM TUBE TP SCH ×2 (09:00→20:53)
[2020-08-07] MEDS: ASPIRIN 81 MG TAB.CHEW GT SCH (09:31)
[2020-08-07] MEDS: METOPROLOL TARTRATE 25 MG TABLET GT SCH ×2 (09:31→20:44)
[2020-08-07] MEDS: DOCUSATE SODIUM LIQ 100 MG/10 ML UDC GT SCH (09:31)
[2020-08-07] MEDS: FERROUS SULFATE UDC 300 MG/5 ML UDC GT SCH ×3 (09:31→17:32)
[2020-08-07] MEDS: GLYCOPYRROLATE 1 MG TABLET GT SCH ×3 (09:31→17:32)
[2020-08-07] MEDS: ESCITALOPRAM OXALATE (10 MG) 10 MG TABLET GT SCH (09:31)
[2020-08-07] MEDS: VIT B CMPLX 3/FA/VIT C/BIOTIN 1 TAB TABLET GT SCH (09:33)
[2020-08-07] MEDS: PROSOURCE / PROSTAT (PYXIS) 30 ML UDC GT SCH ×4 (09:33→20:49)
[2020-08-07] MEDS: SEVELAMER CARBONATE 800 MG POWD.PACK GT SCH ×3 (09:33→17:32)
[2020-08-07] MEDS: LINAGLIPTIN 5 MG TABLET GT SCH (09:33)
[2020-08-07] MEDS: HEPARIN SODIUM, PORCINE 5000 UNITS/1 ML VIAL SQ SCH ×2 (09:34→20:52)
[2020-08-07 12:00] VITALS: BP 122/62
--- NOTE | 2020-08-07 16:51 | NUR ---
Seen by Dr Kee. He ordered Bactroban ointment to nares BID for 14 days for MRSA. Placed pt on contact isolation for MRSA nares. Provided education to staff regarding isolation precautions. Dr Kee also ordered Adair 5/325 mg GT 30 minutes prior to wound care q shift. Informed him that according to pt's , pt gets very drowsy when he is on Lexapro. Dr Kee ordered to decrease Lexapro to 5 mg daily for 7 days then DC. Addendum: 08/07/20 at 1818 by JEFF RNAD RN Notified pt's of new orders.
[2020-08-07] MEDS: MUPIROCIN OINT 2% 22 GM TUBE TP SCH (17:00)
--- NOTE | 2020-08-07 18:19 | NUR ---
Charge nurse and RN Ericka called pt's to verify that she wants to change full code status to supportive care no CPR. Pt's Lakeshia confirmed it.
[2020-08-07 19:27] VITALS: BP 127/60
[2020-08-07] MEDS: AMLODIPINE BESYLATE 5 MG TABLET GT SCH (20:46)
[2020-08-07] MEDS: ATORVASTATIN 40 MG TABLET GT SCH (21:00)
[2020-08-07] MEDS: LATANOPROST EYE DROP 0.005% 2.5 ML BOTTLE OP SCH (21:01)
--- NOTE | 2020-08-07 22:07 | NUR ---
SA RN NOTE PATIENT ON MECH VENT ON FIO2 AT 30% WITH PERIODS OF DESATURATION OF 87%. RT INCREASED FIO2 TO 40%; POX 100%. PATIENT IN NO DISTRESS AT THIS TIME. WILL CONTINUE TO ASSESS PATIENT.
[2020-08-07] MEDS: HYDROCODONE/APAP 5/325MG TABLET GT SCH (22:59)
[2020-08-08 00:28] VITALS: BP 126/59
[2020-08-08] MEDS: ALBUTEROL FS 2.5 MG/3 ML VIAL.NEB NEB SCH ×4 (01:25→19:58)
[2020-08-08] MEDS: BLOOD SUGAR DIAGNOSTIC 1 EACH STRIP IN SCH ×3 (06:12→18:22)
[2020-08-08] MEDS: INSULIN REGULAR, HUMAN 100 UNIT/ML 3 ML VIAL SQ PRN ×3 (06:13→18:35)
[2020-08-08] MEDS: OMEPRAZOLE 20 MG CAPSULE.DR GT SCH (06:14)
[2020-08-08 07:46] VITALS: BP 118/53
[2020-08-08] MEDS: HYDROGEN PEROXIDE 480 ML BOTTLE TP SCH ×2 (08:15→20:25)
[2020-08-08] MEDS: DAKINS QUARTER STRENGTH (0.125%) 480 ML BOTTLE TOP SCH ×3 (09:00→21:53)
[2020-08-08] MEDS: MUPIROCIN OINT 2% 22 GM TUBE TP SCH ×2 (09:00→17:00)
[2020-08-08] MEDS: NEOMY SULF/BACITRAC ZN/POLY 15 GM TUBE TP SCH ×2 (09:00→21:53)
[2020-08-08] MEDS: POVIDONE-IODINE OINT 28.4 GM TUBE TP SCH ×6 (09:00)
[2020-08-08] MEDS: TRIAMCINOLONE ACETONIDE 0.1% CR 15 GM TUBE TP SCH ×2 (09:00→21:53)
[2020-08-08] MEDS: Z GUARD REMEDY 4 OZ OINT TP SCH ×2 (09:00→21:53)
[2020-08-08] MEDS: DOCUSATE SODIUM LIQ 100 MG/10 ML UDC GT SCH (09:29)
[2020-08-08] MEDS: GLYCOPYRROLATE 1 MG TABLET GT SCH ×3 (09:29→17:00)
[2020-08-08] MEDS: FERROUS SULFATE UDC 300 MG/5 ML UDC GT SCH ×3 (09:29→17:00)
[2020-08-08] MEDS: ASPIRIN 81 MG TAB.CHEW GT SCH (09:29)
[2020-08-08] MEDS: ESCITALOPRAM OXALATE (10 MG) 10 MG TABLET GT SCH (09:29)
[2020-08-08] MEDS: MEROPENEM 1 G in IV NS 0.9% 100 ML IV SCH ×2 (09:30→23:33)
[2020-08-08] MEDS: VIT B CMPLX 3/FA/VIT C/BIOTIN 1 TAB TABLET GT SCH (09:30)
[2020-08-08] MEDS: PROSOURCE / PROSTAT (PYXIS) 30 ML UDC GT SCH ×4 (09:36→21:25)
[2020-08-08] MEDS: SEVELAMER CARBONATE 800 MG POWD.PACK GT SCH ×3 (09:36→17:00)
[2020-08-08] MEDS: LINAGLIPTIN 5 MG TABLET GT SCH (09:36)
[2020-08-08] MEDS: HEPARIN SODIUM, PORCINE 5000 UNITS/1 ML VIAL SQ SCH ×2 (09:37→21:27)
[2020-08-08] MEDS: HYDROCODONE/APAP 5/325MG TABLET GT SCH ×2 (09:42→21:25)
[2020-08-08] MEDS: NEPRO 1,000 ML BOTTLE GT PRN (18:23)
[2020-08-08 19:28] VITALS: BP 124/48
[2020-08-08] MEDS: AMLODIPINE BESYLATE 5 MG TABLET GT SCH (21:25)
[2020-08-08] MEDS: ATORVASTATIN 40 MG TABLET GT SCH (21:25)
[2020-08-08] MEDS: LATANOPROST EYE DROP 0.005% 2.5 ML BOTTLE OP SCH (21:26)
--- NOTE | 2020-08-08 22:00 | NUR ---
RN NOTES MIDLINE DRESSING CHANGED WITH NO BLEEDING OR S/S OF INFECTION NOTED ON SITE, FLUSHED WITH NORMAL SALINE WITHOUT DIFFICULTY.
[2020-08-08] MEDS ORDERED: MEROPENEM 1 G VIAL IV ONE (23:30)
[2020-08-09] VITALS (10 sets, daily range): BP systolic 70–125; BP diastolic 29–58
[2020-08-09] MEDS: BLOOD SUGAR DIAGNOSTIC 1 EACH STRIP IN SCH ×4 (00:20→18:42)
[2020-08-09] MEDS: INSULIN REGULAR, HUMAN 100 UNIT/ML 3 ML VIAL SQ PRN ×4 (00:23→18:43)
[2020-08-09] MEDS: ALBUTEROL FS 2.5 MG/3 ML VIAL.NEB NEB SCH ×3 (02:10→20:44)
--- NOTE | 2020-08-09 03:25 | NUR ---
PATIENT RECEIVED ON TRACH TO VENT WITH SETTINGS OF AC 24, 500 Vt, 30%, +5. SUCTIONED FOR MINIMAL, THICK, YELLOW-CREAM SECRETIONS. GIVEN IN-LINE TREATMENTS WITH NO ADVERSE REACTIONS. AMBU BAG AT BEDSIDE. VENT AND PULSE OXIMETER ALARMS AUDIBLE AND VISIBLE. TRACH CARE DONE. VENT PLUGGED INTO RED OUTLET. Addendum: 08/09/20 at 0331 by PAOLA MCKEON RT Amended: Links added.
[2020-08-09] MEDS: OMEPRAZOLE 20 MG CAPSULE.DR GT SCH (05:47)
[2020-08-09] MEDS: TRAMADOL HCL 50 MG TABLET GT PRN (05:49)
--- NOTE | 2020-08-09 07:30 | NUR ---
tylenol 650 mg given via gt temp 101.6. cooling measures in place. all comfort measures rendered. endorsed to oncoming nurse.
[2020-08-09] MEDS: HYDROGEN PEROXIDE 480 ML BOTTLE TP SCH ×2 (08:35→21:36)
[2020-08-09] MEDS: Z GUARD REMEDY 4 OZ OINT TP SCH ×2 (09:00→21:38)
[2020-08-09] MEDS: METOPROLOL TARTRATE 25 MG TABLET GT SCH ×2 (09:00→21:35)
[2020-08-09] MEDS: POVIDONE-IODINE OINT 28.4 GM TUBE TP SCH ×6 (09:00)
[2020-08-09] MEDS: MUPIROCIN OINT 2% 22 GM TUBE TP SCH ×2 (09:00→17:32)
[2020-08-09] MEDS: TRIAMCINOLONE ACETONIDE 0.1% CR 15 GM TUBE TP SCH ×2 (09:00→21:38)
[2020-08-09] MEDS: DAKINS QUARTER STRENGTH (0.125%) 480 ML BOTTLE TOP SCH ×3 (09:00→21:38)
[2020-08-09] MEDS: NEOMY SULF/BACITRAC ZN/POLY 15 GM TUBE TP SCH ×2 (09:00→21:38)
[2020-08-09] MEDS: ASPIRIN 81 MG TAB.CHEW GT SCH (09:23)
[2020-08-09] MEDS: GLYCOPYRROLATE 1 MG TABLET GT SCH ×3 (09:23→17:31)
[2020-08-09] MEDS: FERROUS SULFATE UDC 300 MG/5 ML UDC GT SCH ×3 (09:23→17:30)
[2020-08-09] MEDS: DOCUSATE SODIUM LIQ 100 MG/10 ML UDC GT SCH (09:23)
[2020-08-09] MEDS: ESCITALOPRAM OXALATE (10 MG) 10 MG TABLET GT SCH (09:24)
[2020-08-09] MEDS: SEVELAMER CARBONATE 800 MG POWD.PACK GT SCH ×3 (09:26→17:31)
[2020-08-09] MEDS: LINAGLIPTIN 5 MG TABLET GT SCH (09:26)
[2020-08-09] MEDS: HYDROCODONE/APAP 5/325MG TABLET GT SCH ×2 (09:26→21:35)
[2020-08-09] MEDS: PROSOURCE / PROSTAT (PYXIS) 30 ML UDC GT SCH ×4 (09:26→21:36)
[2020-08-09] MEDS: HEPARIN SODIUM, PORCINE 5000 UNITS/1 ML VIAL SQ SCH ×2 (09:27→21:37)
[2020-08-09] MEDS: VIT B CMPLX 3/FA/VIT C/BIOTIN 1 TAB TABLET GT SCH (09:29)
[2020-08-09] MEDS: MEROPENEM 1 G in IV NS 0.9% 100 ML IV SCH (10:01)
--- NOTE | 2020-08-09 12:00 | NUR ---
Notified Dr. Kee of the following patient's VS at this time T 97.8, o2 sat96%, P89, B/P 80/36, at 0730 B/P 125/57, 94, 18, T 101.6. Clarified with MD the duration of ATB as if has been discontinued in [facility]. Dr. Kee ordered IVF bolus for hypotension and stat CBC and CMP. Orders carried out.
[2020-08-09 12:29] LABS: BASOPHILS # (AUTO) 0.1 /CMM (0.0-0.2); BASOPHILS % (AUTO) 0.5 % (0.0-2.0); EOSINOPHILS % (AUTO) 3.4 % (0.0-6.0); HEMATOCRIT 25 % (39-51); HEMOGLOBIN 7.4 g/dL (13.5-17.5); LYMPHOCYTES # (AUTO) 0.8 /CMM (0.8-4.8); LYMPHOCYTES % (AUTO) 6.2 % (20.0-44.0); MEAN CORPUSCULAR HGB CONC 30 g/dl (31.0-36.0); MEAN CORPUSCULAR VOLUME 101 fL (80-96); MONOCYTES # (AUTO) 0.5 /CMM (0.1-1.30); MONOCYTES % (AUTO) 3.9 % (2.0-12.0); NEUTROPHILS # (AUTO) 10.7 /CMM (1.8-8.9); PLATELET COUNT (AUTO) 209 /CMM (150-450); RED BLOOD CELL COUNT(AUTO) 2.45 MIL/uL (4.5-6.0); WHITE BLOOD COUNT (AUTO) 12.4 K/uL (4.3-11.0)
[2020-08-09 12:57] LABS: ALKALINE PHOSPHATASE 129 U/L (46-116); ASPARTATE AMINOTRANSFERASE 19 U/L (15-37); BILIRUBIN,TOTAL 0.5 mg/dL (0.2-1.0); CALCIUM, SERUM 8.5 mg/dL (8.5-10.1); CARBON DIOXIDE 27 mmol/L (21-32); CHLORIDE 102 mmol/L (98-107); CREATININE 2.1 mg/dL (0.6-1.3); GLUCOSE 150 mg/dL (74-106); SODIUM SERUM 138 mmol/L (136-145); TOTAL PROTEIN, SERUM 5.1 g/dL (6.4-8.2); UREA NITROGEN, BLOOD 44 mg/dL (7-18)
[2020-08-09] MEDS ORDERED: IV NS 0.9% 500 ML IV ONE (13:00)
[2020-08-09 13:07] LABS: ALBUMIN 1.2 g/dL (3.4-5.0)
[2020-08-09 13:17] LABS: ALANINE AMINOTRANSFERASE < 6 U/L (12-78); BAND % (MANUAL) 3 % (0.0-5.0); EOSINOPHILS % (MANUAL) 2 % (0-4); LYMPHOCYTES % (MANUAL) 10 % (16-48); MONOCYTES % (MANUAL) 10 % (0-11.0); NEUTROPHILS % (MANUAL) 75 (42-76)
--- NOTE | 2020-08-09 13:35 | NUR ---
Notified Dr. Kee IVF 500ml NS bolus completed. B/P 89/51, 89, 98-99% O2 sat, T 97.8. Reported CBC and CMP result with WBC 12.4, Albumin of 1.2 and K+ 3.0. No new order given but to recheck B/P in an hour. Dr. Kee also did not extend ATB. Last dose of Merrem given this morning, no adverse reaction afebrile at 97.8.
--- NOTE | 2020-08-09 15:20 | NUR ---
Relayed recent VS to Dr. Kee, B/P 101/56, 91, 98.6, 98%, 23. No orders at this time.
[2020-08-09] MEDS: NEPRO 1,000 ML BOTTLE GT PRN (19:18)
--- NOTE | 2020-08-09 20:30 | NUR ---
RN NOTES MOSHE CAME TO VISIT, INFORMED HER OF PATIENT'S EPISODE OF LOW BLOOD PRESSURE AND INCREASED IN TEMPERATURE EARLIER ALSO UPDATED HER OF THE LATEST VITAL SIGNS WITHIN NORMAL LIMITS, VERBALIZED UNDERSTANDING.
[2020-08-09] MEDS: AMLODIPINE BESYLATE 5 MG TABLET GT SCH (21:35)
[2020-08-09] MEDS: LATANOPROST EYE DROP 0.005% 2.5 ML BOTTLE OP SCH (21:38)
[2020-08-09] MEDS: ATORVASTATIN 40 MG TABLET GT SCH (21:38)
[2020-08-10] MEDS: BLOOD SUGAR DIAGNOSTIC 1 EACH STRIP IN SCH ×4 (00:11→17:45)
[2020-08-10] MEDS: INSULIN REGULAR, HUMAN 100 UNIT/ML 3 ML VIAL SQ PRN ×4 (00:12→17:49)
[2020-08-10] MEDS: ALBUTEROL FS 2.5 MG/3 ML VIAL.NEB NEB SCH ×4 (01:15→20:11)
[2020-08-10] MEDS: OMEPRAZOLE 20 MG CAPSULE.DR GT SCH (06:03)
[2020-08-10 07:41] VITALS: BP 94/52
[2020-08-10] MEDS: HYDROGEN PEROXIDE 480 ML BOTTLE TP SCH ×2 (08:15→23:11)
[2020-08-10] MEDS: Z GUARD REMEDY 4 OZ OINT TP SCH ×2 (09:00→20:05)
[2020-08-10] MEDS: POVIDONE-IODINE OINT 28.4 GM TUBE TP SCH ×6 (09:00)
[2020-08-10] MEDS: VIT B CMPLX 3/FA/VIT C/BIOTIN 1 TAB TABLET GT SCH (09:00)
[2020-08-10] MEDS: METOPROLOL TARTRATE 25 MG TABLET GT SCH ×2 (09:00→20:01)
[2020-08-10] MEDS: ASPIRIN 81 MG TAB.CHEW GT SCH (09:00)
[2020-08-10] MEDS: FERROUS SULFATE UDC 300 MG/5 ML UDC GT SCH ×2 (09:00→13:00)
[2020-08-10] MEDS: MUPIROCIN OINT 2% 22 GM TUBE TP SCH ×2 (09:00→17:44)
[2020-08-10] MEDS: TRIAMCINOLONE ACETONIDE 0.1% CR 15 GM TUBE TP SCH ×2 (09:00→20:04)
[2020-08-10] MEDS: SEVELAMER CARBONATE 800 MG POWD.PACK GT SCH ×3 (09:00→17:44)
[2020-08-10] MEDS: GLYCOPYRROLATE 1 MG TABLET GT SCH ×3 (09:00→17:44)
[2020-08-10] MEDS: PROSOURCE / PROSTAT (PYXIS) 30 ML UDC GT SCH ×4 (09:00→20:02)
[2020-08-10] MEDS: DOCUSATE SODIUM LIQ 100 MG/10 ML UDC GT SCH (09:00)
[2020-08-10] MEDS: DAKINS QUARTER STRENGTH (0.125%) 480 ML BOTTLE TOP SCH ×3 (09:00→20:04)
[2020-08-10] MEDS: HEPARIN SODIUM, PORCINE 5000 UNITS/1 ML VIAL SQ SCH ×2 (09:00→20:03)
[2020-08-10] MEDS: LINAGLIPTIN 5 MG TABLET GT SCH (09:00)
[2020-08-10] MEDS: NEOMY SULF/BACITRAC ZN/POLY 15 GM TUBE TP SCH ×2 (09:00→20:04)
[2020-08-10] MEDS: ESCITALOPRAM OXALATE (10 MG) 10 MG TABLET GT SCH (09:00)
[2020-08-10] MEDS: HYDROCODONE/APAP 5/325MG TABLET GT SCH ×2 (09:30→20:01)
[2020-08-10 14:06] VITALS: BP 109/54
[2020-08-10] MEDS ORDERED: ACETAMINOPHEN 650 MG/20 ML UDC- SA PATIENTS-PAIN ONLY GT PRN (16:30)
[2020-08-10] MEDS ORDERED: ACETAMINOPHEN 650 MG/20 ML UDC- SA PATIENTS-FEVER ONLY GT PRN (16:30)
[2020-08-10] MEDS: FERROUS SULFATE - FOR SA ONLY 330 MG/7.5 ML UDC GT SCH (17:44)
[2020-08-10 20:00] VITALS: BP 115/49
[2020-08-10] MEDS: AMLODIPINE BESYLATE 5 MG TABLET GT SCH (20:02)
[2020-08-10] MEDS: ATORVASTATIN 40 MG TABLET GT SCH (21:06)
[2020-08-10] MEDS: LATANOPROST EYE DROP 0.005% 2.5 ML BOTTLE OP SCH (21:07)
[2020-08-11] MEDS: BLOOD SUGAR DIAGNOSTIC 1 EACH STRIP IN SCH ×4 (00:12→18:00)
[2020-08-11] MEDS: INSULIN REGULAR, HUMAN 100 UNIT/ML 3 ML VIAL SQ PRN ×3 (00:14→12:18)
[2020-08-11] MEDS: ALBUTEROL FS 2.5 MG/3 ML VIAL.NEB NEB SCH ×4 (01:38→19:30)
[2020-08-11] MEDS: NEPRO 1,000 ML BOTTLE GT PRN (04:42)
[2020-08-11] MEDS: OMEPRAZOLE 20 MG CAPSULE.DR GT SCH (05:07)
[2020-08-11 07:48] VITALS: BP 118/59
[2020-08-11] MEDS: DOCUSATE SODIUM LIQ 100 MG/10 ML UDC GT SCH (08:57)
[2020-08-11] MEDS: ASPIRIN 81 MG TAB.CHEW GT SCH (08:57)
[2020-08-11] MEDS: GLYCOPYRROLATE 1 MG TABLET GT SCH ×3 (08:57→17:00)
[2020-08-11] MEDS: ESCITALOPRAM OXALATE (10 MG) 10 MG TABLET GT SCH (08:57)
[2020-08-11] MEDS: VIT B CMPLX 3/FA/VIT C/BIOTIN 1 TAB TABLET GT SCH (08:57)
[2020-08-11] MEDS: FERROUS SULFATE - FOR SA ONLY 330 MG/7.5 ML UDC GT SCH ×3 (08:57→17:00)
[2020-08-11] MEDS: HYDROCODONE/APAP 5/325MG TABLET GT SCH (08:58)
[2020-08-11] MEDS: PROSOURCE / PROSTAT (PYXIS) 30 ML UDC GT SCH ×3 (08:59→17:00)
[2020-08-11] MEDS: MUPIROCIN OINT 2% 22 GM TUBE TP SCH ×2 (09:00→17:00)
[2020-08-11] MEDS: SEVELAMER CARBONATE 800 MG POWD.PACK GT SCH ×3 (09:00→17:00)
[2020-08-11] MEDS: TRIAMCINOLONE ACETONIDE 0.1% CR 15 GM TUBE TP SCH (09:00)
[2020-08-11] MEDS: NEOMY SULF/BACITRAC ZN/POLY 15 GM TUBE TP SCH (09:00)
[2020-08-11] MEDS: POVIDONE-IODINE OINT 28.4 GM TUBE TP SCH ×6 (09:00)
[2020-08-11] MEDS: Z GUARD REMEDY 4 OZ OINT TP SCH (09:00)
[2020-08-11] MEDS: HEPARIN SODIUM, PORCINE 5000 UNITS/1 ML VIAL SQ SCH (09:00)
[2020-08-11] MEDS: DAKINS QUARTER STRENGTH (0.125%) 480 ML BOTTLE TOP SCH ×2 (09:00)
[2020-08-11] MEDS: LINAGLIPTIN 5 MG TABLET GT SCH (09:00)
[2020-08-11] MEDS: HYDROGEN PEROXIDE 480 ML BOTTLE TP SCH ×2 (09:18→21:00)
--- NOTE | 2020-08-11 09:44 | NUR ---
Facility Update: KENNETH notified family via phone call that " No [facility] residents or employees tested positive for COVID-19 this week. As recommended by [facility], all Sub-Acute residents & healthcare personnel will continue receiving routine testing. [facility] continues to follow infection control protocols and screen our residents and staff daily for symptoms. Patient Visitation will now be allowed 3 times within 7 days of negative COVID Test. We will update you when [facility] changes their regulations." Late entry for 08/05/2020
--- NOTE | 2020-08-11 17:47 | NUR ---
[facility] RT came to return the ventilator, but pt did not come back. RT said the dialysis center called 911 and pt was brought to the ER. He said pt was brought to an ER, but not at [facility]. He does not know where the pt was brought. Called dialysis center, spoke with Jr. She said dialysis treatment was 18 minutes to finish when pt's blood pressure was dropping, SBP dropped from 60 to 40, and pt's pulse was weak. She called 911, they did CPR on him and pt was given Epi. Asked her where the pt was taken by paramedics and she said she does not know. Asked her if pt's family has been notified and she said she has not called them yet since their printer was not working, she was unable to get the pt's information. Subacute nurse sent facesheet with pt today when he went to [facility]. Charge nurse and RT Rangel called several nearby ERs to locate pt. RT Rangel called the [employer] [employer]. He was told to try calling [facility] in [place]. Charge nurse called their ER and spoke with Porter. She said they have the pt with them. She asked if the family is aware that the pt is with them. Charge nurse said she will call the family. Also provided Porter with pt's 's name and phone number. Called Lakeshia and informed her that pt was transferred to [facility] ER from dialysis center due to hypotension.
--- NOTE | 2020-08-11 18:21 | NUR ---
Informed Dr Kee that pt was transferred to [facility] in [place] from [facility] due to hypotension.
[2020-08-12] MEDS: ALBUTEROL FS 2.5 MG/3 ML VIAL.NEB NEB SCH (19:30)
[2020-08-12] MEDS: HYDROGEN PEROXIDE 480 ML BOTTLE TP SCH (21:00)
[2020-08-13] MEDS: ALBUTEROL FS 2.5 MG/3 ML VIAL.NEB NEB SCH (01:30)
--- NOTE | 2020-08-15 14:43 | NUR ---
SW called pt.'s , Vern Schmidt [phone] to discuss bed hold is up on 08/17/2020 and discuss status of pt. returning to facility. No answer. SW left voicemail requesting hr to call nursing station and provide any update.
--- NOTE | 2020-08-18 09:04 | NUR ---
Follow up: SW called pt.'s , Vern Schmidt [phone] regarding 7 day bed hold is up. Per Vern, the pt. 08/11/2020. Noted. SW provided emotional support to Vern. SW offered & bereavement resources to family. Pt's family refused. SW will be available as needed. SW reminded Vern to complete paperwork and send back with prepaid envelope attached. Vern is agreeable.
== END 2020-08-11 19:00 | disposition short-term general hospital (02) | DRG 130 ==
LOC: SA 17:30
PROVIDERS: ADMIT Internal Medicine; ATTEND Internal Medicine
PROC: 5A1955Z Respiratory Ventilation, Greater than 96 Consecutive Hours (ICD-10-PCS; principal; 2020-08-05)
DX: J96.10 Chronic respiratory failure, unspecified whether with hypoxia or hypercapnia (principal); I13.2 Hypertensive heart and chronic kidney disease with heart failure and with stage 5 chronic kidney disease, or end stage renal disease; G93.40 Encephalopathy, unspecified; L89.144 Pressure ulcer of left lower back, stage 4; E46 Unspecified protein-calorie malnutrition; R40.3 Persistent vegetative state; L89.154 Pressure ulcer of sacral region, stage 4; E11.22 Type 2 diabetes mellitus with diabetic chronic kidney disease; R13.10 Dysphagia, unspecified; E11.40 Type 2 diabetes mellitus with diabetic neuropathy, unspecified; L97.419 Non-pressure chronic ulcer of right heel and midfoot with unspecified severity; E11.621 Type 2 diabetes mellitus with foot ulcer; L97.429 Non-pressure chronic ulcer of left heel and midfoot with unspecified severity; E11.622 Type 2 diabetes mellitus with other skin ulcer; N18.6 End stage renal disease; Z99.11 Dependence on respirator [ventilator] status; Z93.0 Tracheostomy status; Z93.1 Gastrostomy status; I50.9 Heart failure, unspecified; Z86.16 Personal history of COVID-19; I25.10 Atherosclerotic heart disease of native coronary artery without angina pectoris; N40.0 Benign prostatic hyperplasia without lower urinary tract symptoms; Z87.01 Personal history of pneumonia (recurrent); Z95.1 Presence of aortocoronary bypass graft; Z99.2 Dependence on renal dialysis; Z79.4 Long term (current) use of insulin; Z88.8 Allergy status to other drugs, medicaments and biological substances; D64.9 Anemia, unspecified; K21.9 Gastro-esophageal reflux disease without esophagitis
CPT/HCPCS: 31720; 36415; 80053-TC; 82962-TC; 85025-TC; 86580-TC; 87081-TC; 92507-TC; 92521; 94003-TC; 94760-TC; 94762-TC; 94799-TC; 97110-TC; A4623; A6253; A7526; J1644; J1815; J2185; J7030; U0003